=== PATIENT | female | born 1990 | race Caucasian/White ===

== ENCOUNTER 2016-09-07 10:08 | Emergency (ER) | payer MEDICAID ==
[2016-09-07 10:15] VITALS: BP 125/89
[2016-09-07] MEDS ORDERED: IBUPROFEN 600 MG TABLET PO ONE (10:36)
[2016-09-07] MEDS ORDERED: PROMETHAZINE HCL 25 MG TABLET PO ONE (10:36)
--- NOTE | 2016-09-07 10:39 | ER Document Report ---
ED Medical Screen (RME) - General Chief Complaint: Vaginal Bleeding Stated Complaint: VAGINAL BLEEDING Time Seen by Provider: 09/07/16 10:35 Notes: Complaining of vaginal bleeding and pelvic pain. Patient had a at [facility] on 07/18 and had her tubes tied. She had stopped bleeding and was well until 4 days ago when she started having vaginal bleeding. The bleeding has been heavy and associated with clots. Having severe pelvic pain. Nauseated but not vomiting. Patient had a ruptured cyst during her previous . TRAVEL OUTSIDE OF THE [place] IN LAST 30 DAYS: No - Related Data Allergies/Adverse Reactions: Penicillins Allergy (Verified 09/07/16 10:12) Generalized Itching Home Medications: Current Home Medications Bupropion HCl [Wellbutrin Xl 300mg 24hr Tablet] 1 tab PO DAILY 09/07/16 [History ] Past Medical History Renal/ Medical History: Reports: Hx Ovarian Cysts. Denies: Hx Peritoneal Dialysis Psychiatric Medical History: Reports: Hx Anxiety Past Surgical History: Reports: Hx Section - x2, Hx Gynecologic Surgery - 06/2012 - Immunizations Hx Diphtheria, Pertussis, Tetanus Vaccination: Yes Physical Exam - Vital signs Vitals: Temp Pulse Resp BP Pulse Ox 98.1 F 101 H 20 125/89 H 100 09/07/16 10:12 09/07/16 10:12 09/07/16 10:12 09/07/16 10:12 09/07/16 10:12 Course - Vital Signs Vital signs: Temp Pulse Resp BP Pulse Ox 98.1 F 101 H 20 125/89 H 100 09/07/16 10:12 09/07/16 10:12 09/07/16 10:12 09/07/16 10:12 09/07/16 10:12
[2016-09-07 10:58] LABS: ABSOLUTE BASOPHILS # (AUTO) 0.1 10^3/uL (0.0-0.2); ABSOLUTE EOSINOPHILS # (AUTO) 0.1 10^3/uL (0.0-0.6); ABSOLUTE LYMPHOCYTES (AUTO) 1.5 10^3/uL (0.5-4.7); ABSOLUTE MONOCYTES (AUTO) 0.7 10^3/uL (0.1-1.4); ABSOLUTE NEUT (AUTO) 4.5 10^3/uL (1.7-8.2); EOSINOPHILS % (AUTO) 2.1 % (0-6); HEMOGLOBIN 13.2 g/dL (12.0-15.5); HGB HCT DIFFERENCE -1.4; LYMPHOCYTES % (AUTO) 21.5 % (13-45); MEAN CORPUSCULAR HEMOGLOBIN 26.2 pg (27.0-33.4); MEAN CORPUSCULAR HGB CONC 32.1 g/dL (32.0-36.0); MEAN CORPUSCULAR VOLUME 82 fl (80-97); MONOCYTES % (AUTO) 10.1 % (3-13); RED BLOOD COUNT 5.03 10^6/uL (3.72-5.28); RED CELL DISTRIBUTION WIDTH 15.7 % (11.5-14.0); SEGMENTED NEUTROPHILS % (AUTO) 65.3 % (42-78); WHITE BLOOD COUNT 6.8 10^3/uL (4.0-10.5)
== END 2016-09-07 13:25 | disposition left against medical advice (07) ==
LOC: ER 10:08
DX: N93.9 Abnormal uterine and vaginal bleeding, unspecified (principal); R10.2 Pelvic and perineal pain; R11.0 Nausea; Z98.890 Other specified postprocedural states; Z87.42 Personal history of other diseases of the female genital tract; Z88.0 Allergy status to penicillin; Z53.20 Procedure and treatment not carried out because of patient's decision for unspecified reasons
CPT/HCPCS: 99281; 36415; 84702; 85025; J3490 ×2

== ENCOUNTER 2016-10-09 07:08 | Emergency (ER) | payer SELFPAY ==
[2016-10-09 09:18] LABS: ABSOLUTE BASOPHILS # (AUTO) 0.1 10^3/uL (0.0-0.2); ABSOLUTE EOSINOPHILS # (AUTO) 0.1 10^3/uL (0.0-0.6); ABSOLUTE MONOCYTES (AUTO) 0.4 10^3/uL (0.1-1.4); ABSOLUTE NEUT (AUTO) 3.2 10^3/uL (1.7-8.2); BASOPHILS % (AUTO) 1.1 % (0-2); EOSINOPHILS % (AUTO) 2.6 % (0-6); HEMATOCRIT 34.1 % (36.0-47.0); HEMOGLOBIN 11.1 g/dL (12.0-15.5); HGB HCT DIFFERENCE -0.8; LYMPHOCYTES % (AUTO) 20.6 % (13-45); MEAN CORPUSCULAR HEMOGLOBIN 26.1 pg (27.0-33.4); MEAN CORPUSCULAR HGB CONC 32.6 g/dL (32.0-36.0); MEAN CORPUSCULAR VOLUME 80 fl (80-97); MONOCYTES % (AUTO) 8.4 % (3-13); RED BLOOD COUNT 4.26 10^6/uL (3.72-5.28); RED CELL DISTRIBUTION WIDTH 14.7 % (11.5-14.0); SEGMENTED NEUTROPHILS % (AUTO) 67.3 % (42-78); WHITE BLOOD COUNT 4.7 10^3/uL (4.0-10.5)
[2016-10-09 10:53] LABS: ALANINE AMINOTRANSFERASE 21 U/L (9-52); ALBUMIN 3.7 g/dL (3.5-5.0); ALKALINE PHOSPHATASE 60 U/L (38-126); ANION GAP 10 (5-19); ASPARTATE AMINO TRANSFERASE 17 U/L (14-36); BILIRUBIN,DIRECT 0.4 mg/dL (0.0-0.4); BILIRUBIN,TOTAL 0.9 mg/dL (0.2-1.3); BLOOD UREA NITROGEN 9 mg/dL (7-20); CALCIUM 8.8 mg/dL (8.4-10.2); CARBON DIOXIDE 22 mmol/L (22-30); CHLORIDE 105 mmol/L (98-107); CREATININE RESULT 0.56 mg/dL (0.52-1.25); GLUCOSE 90 mg/dL (75-110); POTASSIUM 4.4 mmol/L (3.6-5.0); TOTAL PROTEIN 6.3 g/dL (6.3-8.2)
--- NOTE | 2016-10-09 11:19 | ER Document Report ---
ED General - General Chief Complaint: Vaginal Bleeding Stated Complaint: ABDOMINAL PAIN Time Seen by Provider: 10/09/16 08:30 Mode of Arrival: Ambulatory Information source: Patient Notes: 25-year-old female 4 para 4 who had a tubal ligation presents with complaints of vaginal bleeding intermittently over the past 3 months since her last delivery. Patient denies any fevers or chills denies any severe abdominal pain TRAVEL OUTSIDE OF THE [place] IN LAST 30 DAYS: No - HPI Onset: Other Onset/Duration: Intermittent Quality of pain: Cramping Severity: Mild Pain Level: 1 Associated symptoms: Other Exacerbated by: Denies Relieved by: Denies Similar symptoms previously: Yes Recently seen / treated by doctor: Yes - Related Data Allergies/Adverse Reactions: Penicillins Allergy (Verified 09/07/16 10:12) Generalized Itching Past Medical History - Social History Smoking Status: Never Smoker Cigarette use (# per day): No Chew tobacco use (# tins/day): No Smoking Education Provided: No Family History: Reviewed & Not Pertinent Renal/ Medical History: Reports: Hx Ovarian Cysts. Denies: Hx Peritoneal Dialysis Psychiatric Medical History: Reports: Hx Anxiety Past Surgical History: Reports: Hx Section - x2, Hx Gynecologic Surgery - 06/2012, Hx Tubal Ligation - Immunizations Hx Diphtheria, Pertussis, Tetanus Vaccination: Yes Review of Systems - Review of Systems Notes: REVIEW OF SYSTEMS: CONSTITUTIONAL : Denies fever, chills, or sweats. Denies recent illness. EENT: Denies eye, ear, throat, or mouth pain or symptoms. Denies nasal or sinus congestion or discharge. Denies throat, tongue, or mouth swelling or difficulty swallowing. CARDIOVASCULAR: Denies chest pain. Denies palpitations or racing or irregular heart beat. Denies ankle edema. RESPIRATORY: Denies cough, cold, or chest congestion. Denies shortness of breath, difficulty breathing, or wheezing. GASTROINTESTINAL: Denies abdominal pain or distention. Denies nausea, vomiting , or diarrhea. Denies blood in vomitus, stools, or per rectum. Denies black, tarry stools. Denies constipation. GENITOURINARY: Denies difficulty urinating, painful urination, burning, frequency, blood in urine, or discharge. FEMALE GENITOURINARY: Admits to vaginal bleeding MUSCULOSKELETAL: Denies back or neck pain or stiffness. Denies joint pain or swelling. SKIN: Denies rash, lesions or sores. HEMATOLOGIC : Denies easy bruising or bleeding. LYMPHATIC: Denies swollen, enlarged glands. NEUROLOGICAL: Denies confusion or altered mental status. Denies passing out or loss of consciousness. Denies dizziness or lightheadedness. Denies headache. Denies weakness or paralysis or loss of use of either side. Denies problems with gait or speech. Denies sensory loss, numbness, or tingling. Denies seizures. PSYCHIATRIC: Denies anxiety or stress. Denies depression, suicidal ideation, or homicidal ideation. ALL OTHER SYSTEMS REVIEWED AND NEGATIVE. PHYSICAL EXAMINATION: GENERAL: Well-appearing, well-nourished and in no acute distress. HEAD: Atraumatic, normocephalic. EYES: Pupils equal round and reactive to light, extraocular movements intact, conjunctiva are normal. ENT: Nares patent, oropharynx clear without exudates. Moist mucous membranes. NECK: Normal range of motion, supple without lymphadenopathy LUNGS: Breath sounds clear to auscultation bilaterally and equal. No wheezes rales or rhonchi. HEART: Regular rate and rhythm without murmurs ABDOMEN: Soft, nontender, nondistended abdomen. No guarding, no rebound. No masses appreciated. Female : deferred Musculoskeletal: Normal range of motion, no pitting or edema. No cyanosis. NEUROLOGICAL: Cranial nerves grossly intact. Normal speech, normal gait. Normal sensory, motor exams PSYCH: Normal mood, normal affect. SKIN: Warm, Dry, normal turgor, no rashes or lesions noted. Dictation was performed using [employer] voice recognition software Physical Exam - Vital signs Vitals: Temp Pulse Resp BP Pulse Ox 97.7 F 88 17 119/81 95 10/09/16 07:12 10/09/16 07:12 10/09/16 07:12 10/09/16 07:12 10/09/16 07:12 Course - Re-evaluation Re-evalutation: 10/09/16 14:28 Patient and I had a very long discussion regarding the use of control, given the history of mother's blood clot I believe is high risk to start this in the emergency department, patient will be given [employer] follow-up. Otherwise lab work notes no acute abnormality patient defers on a pelvic she is otherwise stable for discharge After performing a Medical Screening Examination, I estimate there is LOW risk for ACUTE APPENDICITIS, BOWEL OBSTRUCTION, ACUTE CHOLECYSTITIS, PERFORATED DIVERTICULITIS, INCARCERATED HERNIA, PANCREATITIS, PELVIC INFLAMMATORY DISEASE, PERFORATED ULCER, ECTOPIC , or TUBO-OVARIAN ABSCESS, thus I consider the discharge disposition reasonable. Also, there is no evidence or peritonitis , sepsis, or toxicity. I have reevaluated this patient multiple times and no significant life threatening changes are noted. The patient and I have discussed the diagnosis and risks, and we agree with discharging home with close follow-up with the understanding that symptoms and presentations can change. We also discussed returning to the Emergency Department immediately if new or worsening symptoms occur. We have discussed the symptoms which are most concerning (e.g., bloody stool, fever, changing or worsening pain, vomiting) that necessitate immediate return. - Vital Signs Vital signs: Temp Pulse Resp BP Pulse Ox 97.8 F 91 17 123/89 H 98 10/09/16 11:28 10/09/16 11:28 10/09/16 07:12 10/09/16 11:28 10/09/16 11:28 - Laboratory Result Diagrams: 10/09/16 09:07 10/09/16 09:07 Laboratory results interpreted by me: 10/09/16 09:07 Hgb 11.1 L Hct 34.1 L MCH 26.1 L RDW 14.7 H Discharge - Discharge Clinical Impression: Dysfunctional vaginal bleeding, Pelvic cramping Condition: Stable Disposition: HOME, SELF-CARE Instructions: Dysfunctional Uterine Bleeding ([facility]) Referrals: TIFFANY FIERRO DO [Primary Care Provider] - Follow up as needed [facility] [Provider Group] - Follow up tomorrow
[2016-10-09 11:33] VITALS: BP 123/89
== END 2016-10-09 11:28 | disposition home or self-care (01) ==
LOC: ER 07:08
DX: N93.8 Other specified abnormal uterine and vaginal bleeding (principal); R10.2 Pelvic and perineal pain; R10.9 Unspecified abdominal pain
CPT/HCPCS: 36415; 80053; 84703; 85025; 99284

== ENCOUNTER 2016-11-03 07:30 | Emergency (ER) | payer SELFPAY ==
[2016-11-03] MEDS ORDERED: PROCHLORPERAZINE EDISYLATE INJ 10 MG/2 ML VIAL IV ONE (08:15)
[2016-11-03] MEDS ORDERED: KETOROLAC TROMETHAMINE INJ/PF 30 MG/1 ML SDV IV ONE (08:15)
[2016-11-03] MEDS ORDERED: NORMAL SALINE 1000 ML 1,000 ML IV ONE (08:15)
[2016-11-03 09:09] LABS: ABSOLUTE BASOPHILS # (AUTO) 0.1 10^3/uL (0.0-0.2); ABSOLUTE EOSINOPHILS # (AUTO) 0.2 10^3/uL (0.0-0.6); ABSOLUTE LYMPHOCYTES (AUTO) 1.3 10^3/uL (0.5-4.7); ABSOLUTE MONOCYTES (AUTO) 0.6 10^3/uL (0.1-1.4); ABSOLUTE NEUT (AUTO) 3.2 10^3/uL (1.7-8.2); BASOPHILS % (AUTO) 1.2 % (0-2); EOSINOPHILS % (AUTO) 4.5 % (0-6); HEMATOCRIT 35.7 % (36.0-47.0); HEMOGLOBIN 11.4 g/dL (12.0-15.5); HGB HCT DIFFERENCE -1.5; LYMPHOCYTES % (AUTO) 24.1 % (13-45); MEAN CORPUSCULAR HEMOGLOBIN 25.7 pg (27.0-33.4); MEAN CORPUSCULAR VOLUME 80 fl (80-97); MONOCYTES % (AUTO) 11.6 % (3-13); RED BLOOD COUNT 4.44 10^6/uL (3.72-5.28); RED CELL DISTRIBUTION WIDTH 13.7 % (11.5-14.0); SEGMENTED NEUTROPHILS % (AUTO) 58.6 % (42-78); WHITE BLOOD COUNT 5.5 10^3/uL (4.0-10.5)
[2016-11-03 09:25] LABS: ALANINE AMINOTRANSFERASE 23 U/L (9-52); ALBUMIN 3.9 g/dL (3.5-5.0); ALKALINE PHOSPHATASE 55 U/L (38-126); ANION GAP 10 (5-19); ASPARTATE AMINO TRANSFERASE 18 U/L (14-36); BILIRUBIN,DIRECT 0.2 mg/dL (0.0-0.4); BILIRUBIN,TOTAL 0.5 mg/dL (0.2-1.3); BLOOD UREA NITROGEN 13 mg/dL (7-20); CARBON DIOXIDE 28 mmol/L (22-30); CHLORIDE 100 mmol/L (98-107); CREATININE RESULT 0.62 mg/dL (0.52-1.25); GLUCOSE 66 mg/dL (75-110); POTASSIUM 4.2 mmol/L (3.6-5.0); TOTAL PROTEIN 6.6 g/dL (6.3-8.2)
[2016-11-03 10:11] LABS: APPEARANCE,URINE SLIGHTLY-CLOUDY; BILIRUBIN,URINE NEGATIVE (NEGATIVE); GLUCOSE, URINE NEGATIVE (NEGATIVE); KETONES,URINE NEGATIVE (NEGATIVE); LEUKOCYTE ESTERASE,URINE NEGATIVE (NEGATIVE); NITRITE,URINE NEGATIVE (NEGATIVE); PROTEIN,URINE NEGATIVE (NEGATIVE); URINE SPECIFIC GRAVITY 1.011; UROBILINOGEN,URINE NEGATIVE mg/dL (<2.0)
--- NOTE | 2016-11-03 10:30 | ER Document Report ---
ED Headache - General Chief Complaint: Headache Stated Complaint: HEADACHE Time Seen by Provider: 11/03/16 08:08 Mode of Arrival: Ambulatory Information source: Patient Notes: Patient is a 25-year-old female with a history of migraines who presents to the ER today for headache that began 1 week ago, behind both of her eyes radiating to the back of her head. She describes blurred vision and light and sound sensitivity which is all normal for her migraines. She is to take Fioricet, but however now just takes Excedrin which is not helping with the headaches. She admits to nausea but no vomiting with this migraine. She also complains of swollen feet 3 days. She states this has never happened to her before, denies any injury, states that there both swollen equally. She denies any history of congestive heart failure, states that she does not think she is . She did just have a baby 4 months ago. She also complains of her hair falling out 1 week. She states that her family has a history of thyroid issues but she has never been diagnosed with anything. Also complains of a sunburn to her abdomen that she has been applying after sun aloe vera gel on but has not been helping. She complains of painful blisters. TRAVEL OUTSIDE OF THE [place] IN LAST 30 DAYS: Yes - Related Data Allergies/Adverse Reactions: Penicillins Allergy (Verified 09/07/16 10:12) Generalized Itching Past Medical History - General Information source: Patient - Social History Smoking Status: Never Smoker Chew tobacco use (# tins/day): No Frequency of alcohol use: None Drug Abuse: None Family History: Reviewed & Not Pertinent Renal/ Medical History: Reports: Hx Ovarian Cysts. Denies: Hx Peritoneal Dialysis Psychiatric Medical History: Reports: Hx Anxiety Past Surgical History: Reports: Hx Section - x2, Hx Gynecologic Surgery - 06/2012, Hx Tubal Ligation - Immunizations Hx Diphtheria, Pertussis, Tetanus Vaccination: Yes Review of Systems - Review of Systems Constitutional: See HPI EENT: No symptoms reported Cardiovascular: No symptoms reported Respiratory: No symptoms reported Gastrointestinal: No symptoms reported Genitourinary: No symptoms reported Female Genitourinary: No symptoms reported Musculoskeletal: No symptoms reported Skin: See HPI Hematologic/Lymphatic: No symptoms reported Neurological/Psychological: See HPI Physical Exam - Vital signs Vitals: Temp Pulse Resp BP Pulse Ox 97.6 F 68 16 123/73 100 11/03/16 07:31 11/03/16 07:31 11/03/16 07:31 11/03/16 07:31 11/03/16 07:31 - Notes Notes: Morning PHYSICAL EXAMINATION: GENERAL: Well-appearing and in no acute distress. HEAD: Atraumatic, normocephalic. EYES: Pupils equal round and reactive to light, extraocular movements intact, sclera anicteric, conjunctiva are normal. NECK: Normal range of motion, supple without lymphadenopathy LUNGS: CTAB and equal. No wheezes rales or rhonchi. HEART: Regular rate and rhythm without murmurs ABDOMEN: Soft, no tenderness. No guarding, no rebound BACK: no vertebral tenderness, normal ROM GI/: no CVA tenderness EXTREMITIES: Normal range of motion, no pitting edema. No cyanosis. NEUROLOGICAL: Cranial nerves grossly intact. Normal sensory/motor exams. PSYCH: Normal mood, normal affect. SKIN: Warm, Dry, normal turgor, mild edema to dorsal feet bilaterally, nonpitting , Erythema, second-degree sunburn with blisters to abdomen - HEENT Visual acuity- Right eye: 20/40 Visual acuity- Left eye: 50/50 Visual acuity- Both eyes: 20/40 Corrective lenses worn: No Course - Re-evaluation Re-evalutation: 11/03/16 10:28 Patient did pull out some of her own hair very easily in the room, her thyroid is normal today, normal white blood cell count, BNP is mildly elevated, I do not suspect congestive heart failure or kidney disease causing the swelling of the feet. was negative today. I do advise patient follow-up with her primary care provider about her hair falling out and the swelling in her feet. Her headache is better after IV fluids and medication.. - Vital Signs Vital signs: Temp Pulse Resp BP Pulse Ox 97.6 F 68 16 123/73 100 11/03/16 07:31 11/03/16 07:31 11/03/16 07:31 11/03/16 07:31 11/03/16 07:31 - Laboratory Result Diagrams: 11/03/16 08:40 11/03/16 08:40 Laboratory results interpreted by me: 11/03/16 11/03/16 11/03/16 08:40 08:40 08:40 Hgb 11.4 L Hct 35.7 L MCH 25.7 L Glucose 66 L NT-Pro-B Natriuret Pep 135 H Discharge - Discharge Clinical Impression: Hair loss, Pedal edema, Sunburn Migraine Qualifiers: Migraine type: unspecified Status migrainosus presence: without status migrainosus Intractability: not intractable Qualified Code(s): G43.909 - Migraine, unspecified, not intractable, without status migrainosus Condition: Stable Disposition: HOME, SELF-CARE Instructions: Migraine Headache ([facility]), Edema, Peripheral ([facility]) Additional Instructions: Return immediately for any new or worsening symptoms. Follow up with primary care provider, call tomorrow to make followup appointment. Prescriptions: Ibuprofen [Motrin 800 mg Tablet] 800 mg PO Q8H PRN #30 tab PRN Reason: Referrals: TIFFANY FIERRO DO [Primary Care Provider] - Follow up as needed
[2016-11-03] MEDS ORDERED: SILVER SULFADIAZINE 1% CREAM 400 GM TP ONE (11:17)
[2016-11-03 11:29] VITALS: BP 110/60
== END 2016-11-03 11:29 | disposition home or self-care (01) ==
LOC: ER 07:30
DX: G43.909 Migraine, unspecified, not intractable, without status migrainosus (principal); L65.9 Nonscarring hair loss, unspecified; L55.9 Sunburn, unspecified; R60.9 Edema, unspecified; Z88.0 Allergy status to penicillin
CPT/HCPCS: 99283; 96361; 96374; 96375; 36415; 84443; 84703; 85025; 80053; 81001; 83880; J1885; J0780; J3490; J7030

== ENCOUNTER 2017-02-19 18:03 | Emergency (ER) | payer MEDICAID ==
[2017-02-19 18:22] VITALS: BP 116/78
--- NOTE | 2017-02-19 19:44 | ER Document Report ---
ED Medical Screen (RME) - General Chief Complaint: Vaginal Bleeding Stated Complaint: VAGINGAL BLEEDING, HANDS TINGLING Time Seen by Provider: 02/19/17 19:43 Notes: Patient states that she has heavy vaginal bleeding for the last 6 months ever since she had her tubes tied. She states she is getting severe cramping with this as well. TRAVEL OUTSIDE OF THE [place] IN LAST 30 DAYS: No - Related Data Allergies/Adverse Reactions: Penicillins Allergy (Verified 02/19/17 18:18) Generalized Itching Past Medical History Renal/ Medical History: Reports: Hx Ovarian Cysts. Denies: Hx Peritoneal Dialysis Psychiatric Medical History: Reports: Hx Anxiety Past Surgical History: Reports: Hx Section - x2, Hx Gynecologic Surgery - 06/2012, Hx Tubal Ligation - Immunizations Hx Diphtheria, Pertussis, Tetanus Vaccination: Yes Physical Exam - Vital signs Vitals: Temp Pulse Resp BP Pulse Ox 98.4 F 95 16 116/78 100 02/19/17 18:17 02/19/17 18:17 02/19/17 18:17 02/19/17 18:17 02/19/17 18:17 Course - Vital Signs Vital signs: Temp Pulse Resp BP Pulse Ox 98.4 F 95 16 116/78 100 02/19/17 18:17 02/19/17 18:17 02/19/17 18:17 02/19/17 18:17 02/19/17 18:17
[2017-02-19 20:15] LABS: ABSOLUTE BASOPHILS # (AUTO) 0.1 10^3/uL (0.0-0.2); ABSOLUTE EOSINOPHILS # (AUTO) 0.1 10^3/uL (0.0-0.6); ABSOLUTE LYMPHOCYTES (AUTO) 1.3 10^3/uL (0.5-4.7); ABSOLUTE MONOCYTES (AUTO) 0.8 10^3/uL (0.1-1.4); BASOPHILS % (AUTO) 0.7 % (0-2); EOSINOPHILS % (AUTO) 1.2 % (0-6); HEMATOCRIT 36.4 % (36.0-47.0); HEMOGLOBIN 12.3 g/dL (12.0-15.5); HGB HCT DIFFERENCE 0.5; LYMPHOCYTES % (AUTO) 18.4 % (13-45); MEAN CORPUSCULAR HEMOGLOBIN 26.2 pg (27.0-33.4); MEAN CORPUSCULAR HGB CONC 33.7 g/dL (32.0-36.0); MEAN CORPUSCULAR VOLUME 78 fl (80-97); MONOCYTES % (AUTO) 10.4 % (3-13); RED BLOOD COUNT 4.68 10^6/uL (3.72-5.28); RED CELL DISTRIBUTION WIDTH 15.4 % (11.5-14.0); SEGMENTED NEUTROPHILS % (AUTO) 69.3 % (42-78); WHITE BLOOD COUNT 7.2 10^3/uL (4.0-10.5)
[2017-02-19 20:23] LABS: APPEARANCE,URINE SLIGHTLY-CLOUDY; BILIRUBIN,URINE NEGATIVE (NEGATIVE); GLUCOSE, URINE 150 mg/dL (NEGATIVE); KETONES,URINE NEGATIVE (NEGATIVE); LEUKOCYTE ESTERASE,URINE NEGATIVE (NEGATIVE); NITRITE,URINE NEGATIVE (NEGATIVE); PROTEIN,URINE 30 mg/dL (NEGATIVE); URINE SPECIFIC GRAVITY 1.028
[2017-02-19] MEDS ORDERED: OXYCODONE-ACETAMINOPHEN 5-325 MG TABLET PO ONE (20:36)
[2017-02-19] MEDS ORDERED: IBUPROFEN 800 MG TABLET PO ONE (20:36)
--- NOTE | 2017-02-19 20:38 | ER Document Report ---
ED GI/ - General Chief Complaint: Vaginal Bleeding Stated Complaint: VAGINGAL BLEEDING, HANDS TINGLING Time Seen by Provider: 02/19/17 19:43 Mode of Arrival: Ambulatory Information source: Patient Notes: Patient presents complaining of vaginal bleeding for the past 2 days. Patient states that the bleeding has been heavy and she has passed occasional clots. Patient does report chronic right lower pelvic pain since June after having a tubal ligation. Patient denies any fever. Patient does complain of some burning with urination. Patient reports previous history of PID in the past. Patient states that she has not followed up with a supervisor chassis assembly as she does not currently have insurance. TRAVEL OUTSIDE OF THE [place] IN LAST 30 DAYS: No - HPI Patient complains to provider of: Pelvic pain. No: Vomiting Onset: Other - Pelvic pain since June, vaginal bleeding for 2 days Timing/Duration: Persistent Quality of pain: Achy Pain Level: 4 Context: denies: Location: Pelvis Vaginal bleeding (Compared to normal period): Heavier, Passing clots Sexual history: Active Associated symptoms: Dysuria. denies: Diarrhea, Fever, Nausea, Urinary hesitancy Exacerbated by: Denies Relieved by: Denies Similar symptoms previously: Yes Recently seen / treated by doctor: No - Related Data Allergies/Adverse Reactions: Penicillins Allergy (Verified 02/19/17 18:18) Generalized Itching Past Medical History - General Information source: Patient Last Menstrual Period: 2 days - Social History Smoking Status: Never Smoker Frequency of alcohol use: None Drug Abuse: None Occupation: Retail Lives with: Family Family History: Reviewed & Not Pertinent Patient has suicidal ideation: No Patient has homicidal ideation: No Renal/ Medical History: Reports: Hx Ovarian Cysts. Denies: Hx Peritoneal Dialysis Psychiatric Medical History: Reports: Hx Anxiety Past Surgical History: Reports: Hx Section - x2, Hx Gynecologic Surgery - 06/2012, Hx Tubal Ligation - Immunizations Hx Diphtheria, Pertussis, Tetanus Vaccination: Yes Review of Systems - Review of Systems Constitutional: No symptoms reported. denies: Fever EENT: No symptoms reported Cardiovascular: No symptoms reported. denies: Chest pain, Dizziness, Lightheaded Respiratory: No symptoms reported. denies: Cough, Short of breath Gastrointestinal: No symptoms reported. denies: Vomiting Genitourinary: Burning. denies: Flank pain Female Genitourinary: Heavy/abnormal periods, Vaginal bleeding Musculoskeletal: No symptoms reported. denies: Back pain Skin: No symptoms reported Hematologic/Lymphatic: No symptoms reported Neurological/Psychological: No symptoms reported Physical Exam - Vital signs Vitals: Temp Pulse Resp BP Pulse Ox 98.4 F 95 16 116/78 100 02/19/17 18:17 02/19/17 18:17 02/19/17 18:17 02/19/17 18:17 02/19/17 18:17 - General General appearance: Appears well, Alert In distress: None - HEENT Head: Normocephalic, Atraumatic Eyes: Normal Conjunctiva: Normal Nasal: Normal Mouth/Lips: Normal Pharynx: Normal Neck: Normal, Supple. No: Lymphadenopathy - Respiratory Respiratory status: No respiratory distress Chest status: Nontender Breath sounds: Normal. No: Rales, Rhonchi, Stridor, Wheezing Chest palpation: Normal - Cardiovascular Rhythm: Regular Heart sounds: S1 appreciated, S2 appreciated Murmur: No - Abdominal Inspection: Normal Distension: No distension Bowel sounds: Normal Tenderness: Tender - lower pelvic tenderness Organomegaly: No organomegaly - Genitourinary External exam: Normal Speculum exam: Cervix closed Vaginal bleeding: Mild Bimanuel exam: Cervical motion tender - Back Back: Tender - lumbar paraspinal tenderness. No: CVA tenderness, Vertebra tenderness - Extremities General upper extremity: Normal inspection, Normal ROM General lower extremity: Normal inspection, Normal ROM - Neurological Neuro grossly intact: Yes Cognition: Normal [place] Coma Scale Eye Opening: Spontaneous [place] Coma Scale Verbal: Oriented [place] Coma Scale Motor: Obeys Commands Jeanne Coma Scale Total: 15 - Psychological Associated symptoms: Normal affect, Normal mood - Skin Skin Temperature: Warm Skin Moisture: Dry Skin Color: Normal Course - Vital Signs Vital signs: Temp Pulse Resp BP Pulse Ox 98.4 F 95 16 116/78 100 02/19/17 18:17 02/19/17 18:17 02/19/17 18:17 02/19/17 18:17 02/19/17 18:17 - Laboratory Result Diagrams: 02/19/17 19:58 02/19/17 19:58 Laboratory results interpreted by me: 02/19/17 02/19/17 02/19/17 19:58 19:58 19:58 MCV 78 L MCH 26.2 L RDW 15.4 H AST 12 L Urine Protein 30 H Urine Glucose (UA) 150 H Urine Blood LARGE H Urine Urobilinogen 2.0 H 02/19/17 21:20 MCV MCH RDW AST Urine Protein Urine Glucose (UA) 50 H Urine Blood Urine Urobilinogen 4.0 H 02/20/17 06:53 Labs- Entire Visit 02/19/17 02/19/17 02/19/17 19:58 19:58 19:58 WBC 7.2 RBC 4.68 Hgb 12.3 Hct 36.4 MCV 78 L MCH 26.2 L MCHC 33.7 RDW 15.4 H Plt Count 351 Seg Neutrophils % 69.3 Lymphocytes % 18.4 Monocytes % 10.4 Eosinophils % 1.2 Basophils % 0.7 Absolute Neutrophils 5.0 Absolute Lymphocytes 1.3 Absolute Monocytes 0.8 Absolute Eosinophils 0.1 Absolute Basophils 0.1 Sodium 142.9 Potassium 4.1 Chloride 105 Carbon Dioxide 25 Anion Gap 13 BUN 9 Creatinine 0.52 Est GFR ( Amer) > 60 Est GFR (Non-Af Amer) > 60 Glucose 85 Calcium 9.5 Total Bilirubin 0.5 Direct Bilirubin 0.3 Indirect Bilirubin Not Reportable Neonat Total Bilirubin Not Reportable AST 12 L ALT 23 Alkaline Phosphatase 42 Total Protein 6.9 Albumin 4.4 Urine Color YELLOW Urine Appearance SLIGHTLY-CLOUDY Urine pH 5.0 Ur Specific [place] 1.028 Urine Protein 30 H Urine Glucose (UA) 150 H Urine Ketones NEGATIVE Urine Blood LARGE H Urine Nitrite NEGATIVE Urine Bilirubin NEGATIVE Urine Urobilinogen 2.0 H Ur Leukocyte Esterase NEGATIVE Urine WBC (Auto) 6 Urine RBC (Auto) 49 Urine Bacteria (Auto) TRACE Squamous Epi Cells Auto 11 Amorphous Sediment Auto Urine Mucus (Auto) FEW Urine Ascorbic Acid NEGATIVE Urine HCG, Qual NEGATIVE Trichomonas (Wet Prep) Vaginal WBC Vaginal RBC Vaginal Yeast Chlamydia DNA (PCR) N.gonorrhoeae DNA (PCR) 02/19/17 02/19/17 02/19/17 21:20 21:30 21:30 WBC RBC Hgb Hct MCV MCH MCHC RDW Plt Count Seg Neutrophils % Lymphocytes % Monocytes % Eosinophils % Basophils % Absolute Neutrophils Absolute Lymphocytes Absolute Monocytes Absolute Eosinophils Absolute Basophils Sodium Potassium Chloride Carbon Dioxide Anion Gap BUN Creatinine Est GFR ( Amer) Est GFR (Non-Af Amer) Glucose Calcium Total Bilirubin Direct Bilirubin Indirect Bilirubin Neonat Total Bilirubin AST ALT Alkaline Phosphatase Total Protein Albumin Urine Color YELLOW Urine Appearance CLOUDY Urine pH 6.0 Ur Specific [place] 1.023 Urine Protein NEGATIVE Urine Glucose (UA) 50 H Urine Ketones NEGATIVE Urine Blood NEGATIVE Urine Nitrite NEGATIVE Urine Bilirubin NEGATIVE Urine Urobilinogen 4.0 H Ur Leukocyte Esterase NEGATIVE Urine WBC (Auto) 0 Urine RBC (Auto) 1 Urine Bacteria (Auto) Squamous Epi Cells Auto 1 Amorphous Sediment Auto TRACE Urine Mucus (Auto) RARE Urine Ascorbic Acid NEGATIVE Urine HCG, Qual Trichomonas (Wet Prep) NO TRICHOMONAS SEEN Vaginal WBC RARE WBCS SEEN Vaginal RBC 3+ RBCS SEEN Vaginal Yeast NO YEAST SEEN Chlamydia DNA (PCR) NOT DETECTED N.gonorrhoeae DNA (PCR) NOT DETECTED Discharge - Discharge Clinical Impression: Dysmenorrhea, PID (acute pelvic inflammatory disease) Condition: Stable Disposition: HOME, SELF-CARE Instructions: Anti-Inflammatory Medication ([facility]), Doxycycline ([facility]), Dysmenorrhea ([facility]), Pelvic Inflammatory Disease ([facility]), Rocephin ([facility]) Additional Instructions: Return immediately for any new or worsening symptoms Followup with your primary care provider, call tomorrow to make a followup appointment Follow-up with a supervisor chassis assembly for further evaluation of your chronic pelvic pain Prescriptions: Doxycycline Hyclate 100 mg PO BID #28 capsule Naproxen [Naprosyn 250 Nmg Tablet] 1 tab PO BID #14 tablet Forms: Return to Work Referrals: TIFFANY FIERRO DO [Primary Care Provider] - Follow up as needed [facility] [Provider Group] - Follow up as needed [facility] [Provider Group] - Follow up as needed [facility] [NO LOCAL MD] - Follow up tomorrow
[2017-02-19 20:42] LABS: ALANINE AMINOTRANSFERASE 23 U/L (9-52); ALBUMIN 4.4 g/dL (3.5-5.0); ALKALINE PHOSPHATASE 42 U/L (38-126); ANION GAP 13 (5-19); ASPARTATE AMINO TRANSFERASE 12 U/L (14-36); BILIRUBIN,DIRECT 0.3 mg/dL (0.0-0.4); BILIRUBIN,TOTAL 0.5 mg/dL (0.2-1.3); BLOOD UREA NITROGEN 9 mg/dL (7-20); CALCIUM 9.5 mg/dL (8.4-10.2); CARBON DIOXIDE 25 mmol/L (22-30); CHLORIDE 105 mmol/L (98-107); CREATININE RESULT 0.52 mg/dL (0.52-1.25); GLUCOSE 85 mg/dL (75-110); POTASSIUM 4.1 mmol/L (3.6-5.0); SODIUM 142.9 mmol/L (137-145); TOTAL PROTEIN 6.9 g/dL (6.3-8.2)
[2017-02-19 21:45] LABS: AMORPHOUS SEDIMENT,URINE TRACE /HPF; APPEARANCE,URINE CLOUDY; BILIRUBIN,URINE NEGATIVE (NEGATIVE); GLUCOSE, URINE 50 mg/dL (NEGATIVE); KETONES,URINE NEGATIVE (NEGATIVE); LEUKOCYTE ESTERASE,URINE NEGATIVE (NEGATIVE); NITRITE,URINE NEGATIVE (NEGATIVE); PROTEIN,URINE NEGATIVE (NEGATIVE); URINE SPECIFIC GRAVITY 1.023
[2017-02-19] MEDS ORDERED: DOXYCYCLINE HYCLATE 100 MG TABLET PO ONE (22:35)
[2017-02-19] MEDS ORDERED: LIDOCAINE 1% INJ-PF (10 MG/ML) 30 ML SDV INJ ONE (22:35)
[2017-02-19] MEDS ORDERED: CEFTRIAXONE INJ 250 MG VIAL IM ONE (22:35)
[2017-02-19 23:34] LABS: CHLAM PCR NOT DETECTED (NOT DETECT)
== END 2017-02-19 23:45 | disposition home or self-care (01) ==
LOC: ER 18:03
DX: N94.6 Dysmenorrhea, unspecified (principal); N73.9 Female pelvic inflammatory disease, unspecified; R10.2 Pelvic and perineal pain; G89.29 Other chronic pain; R30.0 Dysuria; Z88.0 Allergy status to penicillin; Z98.51 Tubal ligation status; Z87.42 Personal history of other diseases of the female genital tract
CPT/HCPCS: 99284; 96372; 51701; 36415; 87086; 87210; 85025; 81025; 80053; 81001; 87491; 87591; J3490 ×3; J0696

== ENCOUNTER 2017-03-21 14:35 | Emergency (ER) | payer SELFPAY ==
[2017-03-21] MEDS ORDERED: BUTALB/ACETAMINOPHEN/CAFFEINE 1 TAB EACH PO ONE (15:29)
--- NOTE | 2017-03-21 15:57 | RADIOLOGY REPORT (SQ) ---
EXAM DESCRIPTION: CT HEAD WITHOUT COMPLETED DATE/TIME: 03/21/2017 3:48 pm REASON FOR STUDY: [email or web address] COMPARISON: None. TECHNIQUE: Axial images acquired through the brain without intravenous contrast. Images reviewed wi th bone, brain and subdural windows. Images stored on PACS. All CT scanners at this facility use dose modulation, iterative reconstruction, and/or weight based d osing when appropriate to reduce radiation dose to as low as reasonably achievable (ALARA). [facility]: Dose Right [facility]: CareDose [facility]: Dose Right [facility]: Teradose 4D [facility]: M Lite Solution RADIATION DOSE: mGy. LIMITATIONS: None. FINDINGS: VENTRICLES: Normal size and contour. CEREBRUM: No masses. No hemorrhage. No midline shift. No evidence for acute infarction. Normal gra y/white matter differentiation. No areas of low density in the white matter. CEREBELLUM: No masses. No hemorrhage. No alteration of density. No evidence for acute infarction. EXTRAAXIAL SPACES: No fluid collections. No masses. ORBITS AND GLOBE: No intra- or extraconal masses. Normal contour of globe without masses. CALVARIUM: No fracture. PARANASAL SINUSES: No fluid or mucosal thickening. SOFT TISSUES: No mass or hematoma. OTHER: No other significant finding. IMPRESSION: NORMAL BRAIN CT WITHOUT CONTRAST. EVIDENCE OF ACUTE STROKE: NO. COMMENT: Quality ID # [id number]: Final reports with documentation of one or more dose reduction techniques (e.g., Automated exposure control, adjustment of the mA and/or kV according to patient size, use of iterative reconstruction technique) TECHNICAL DOCUMENTATION: JOB ID: [id number] [employer]- All Rights Reserved
--- NOTE | 2017-03-21 16:25 | ER Document Report ---
ED General - General Chief Complaint: Headache Stated Complaint: HEADACHE Time Seen by Provider: 03/21/17 15:29 Mode of Arrival: Ambulatory Information source: Patient Notes: Patient reports that she has history of migraines and they are usually relieved with Excedrin. 2 days ago she developed a migraine on the left side that will not go away with Excedrin. It is severe and constant. It is worse with light and sound. It is better with dark room and rest. It radiates to the left side of her face. No trauma or fevers. Some nausea no vomiting or diarrhea. TRAVEL OUTSIDE OF THE [place] IN LAST 30 DAYS: No - Related Data Allergies/Adverse Reactions: Penicillins Allergy (Verified 03/21/17 14:59) Generalized Itching Past Medical History - General Information source: Patient - Social History Smoking Status: Never Smoker Chew tobacco use (# tins/day): No Frequency of alcohol use: None Drug Abuse: None Family History: Reviewed & Not Pertinent Patient has suicidal ideation: No Patient has homicidal ideation: No Renal/ Medical History: Reports: Hx Ovarian Cysts. Denies: Hx Peritoneal Dialysis Psychiatric Medical History: Reports: Hx Anxiety Past Surgical History: Reports: Hx Section - x2, Hx Gynecologic Surgery - 06/2012, Hx Tubal Ligation - Immunizations Hx Diphtheria, Pertussis, Tetanus Vaccination: Yes Review of Systems - Review of Systems Constitutional: denies: Chills, Fever EENT: denies: Eye pain, Eye discharge Cardiovascular: denies: Chest pain, Palpitations Respiratory: denies: Cough, Short of breath -: Yes All other systems reviewed and negative Physical Exam - Vital signs Interpretation: Hypertensive - General General appearance: Appears well, Alert - HEENT Head: Normocephalic, Atraumatic Eyes: Normal Pupils: PERRL - Respiratory Respiratory status: No respiratory distress Chest status: Nontender Breath sounds: Normal Chest palpation: Normal - Cardiovascular Rhythm: Regular Heart sounds: Normal auscultation Murmur: No - Abdominal Inspection: Normal Distension: No distension Bowel sounds: Normal Tenderness: Nontender Organomegaly: No organomegaly - Back Back: Normal, Nontender - Extremities General upper extremity: Normal inspection, Nontender, Normal color, Normal ROM , Normal temperature General lower extremity: Normal inspection, Nontender, Normal color, Normal ROM , Normal temperature, Normal weight bearing. No: Jeffrey's sign - Neurological Neuro grossly intact: Yes Cognition: Normal Orientation: AAOx4 Jeanne Coma Scale Eye Opening: Spontaneous [place] Coma Scale Verbal: Oriented Jeanne Coma Scale Motor: Obeys Commands Jeanne Coma Scale Total: 15 Speech: Normal Cranial nerves: Normal Cerebellar coordination: Normal Motor strength normal: LUE, RUE, LLE, RLE Sensory: Normal - Psychological Associated symptoms: Normal affect, Normal mood - Skin Skin Temperature: Warm Skin Moisture: Dry Skin Color: Normal Course - Diagnostic Test Radiology reviewed: Image reviewed, Reports reviewed - Head CT shows no evidence of acute pathology Discharge - Discharge Clinical Impression: Migraine Qualifiers: Migraine type: other Status migrainosus presence: with status migrainosus Intractability: intractable Qualified Code(s): G43.811 - Other migraine, intractable, with status migrainosus Condition: Stable Disposition: HOME, SELF-CARE Instructions: Headache ([facility]) Additional Instructions: Your blood pressure was mildly elevated. Please have this rechecked by your doctor within the next week. Prescriptions: Butalb/Acetaminophen/Caffeine [Fioricet (50-325-40 mg) Tablet] 1 - 2 tab PO Q4H #20 tab Forms: Elevated Blood Pressure, Return to Work Referrals: MEL LOPEZ MD [COMMUNITY BASED STAFF] - Follow up as needed
[2017-03-21 16:40] VITALS: BP 98/60
== END 2017-03-21 16:38 | disposition home or self-care (01) ==
LOC: ER 14:35
DX: G43.911 Migraine, unspecified, intractable, with status migrainosus (principal); Z88.0 Allergy status to penicillin
CPT/HCPCS: 99284; 70450; J3490

== ENCOUNTER 2017-03-27 16:12 | Emergency (ER) | payer SELFPAY ==
[2017-03-27 16:32] VITALS: BP 106/56
--- NOTE | 2017-03-27 16:58 | ER Document Report ---
ED General - General Chief Complaint: Abdominal Pain Stated Complaint: ABDOMINAL PAIN,NAUSEA,HEADACHE Time Seen by Provider: 03/27/17 16:53 Mode of Arrival: Ambulatory Information source: Patient Notes: Patient complains of pain that started yesterday behind her umbilicus and radiates to both lower quadrants. She denies any problems with urination or vaginal bleeding. No positive bowel movements. She has had no vomiting. She states the pain is been intermittent. Nothing makes it better or worse. It is a sharp pain. It is moderate in intensity. TRAVEL OUTSIDE OF THE [place] IN LAST 30 DAYS: No - Related Data Allergies/Adverse Reactions: Penicillins Allergy (Verified 03/27/17 16:16) Generalized Itching Past Medical History - General Information source: Patient - Social History Smoking Status: Never Smoker Frequency of alcohol use: Occasional Drug Abuse: None Lives with: Alone Family History: Reviewed & Not Pertinent Patient has suicidal ideation: No Patient has homicidal ideation: No Renal/ Medical History: Reports: Hx Ovarian Cysts. Denies: Hx Peritoneal Dialysis Psychiatric Medical History: Reports: Hx Anxiety Past Surgical History: Reports: Hx Section - x2, Hx Gynecologic Surgery - 06/2012, Hx Tubal Ligation - Immunizations Hx Diphtheria, Pertussis, Tetanus Vaccination: Yes Review of Systems - Review of Systems Constitutional: denies: Chills, Fever Cardiovascular: denies: Chest pain, Palpitations Respiratory: denies: Cough, Short of breath Genitourinary: denies: Dysuria, Discharge -: Yes All other systems reviewed and negative Physical Exam - Vital signs Vitals: Temp Pulse Resp BP Pulse Ox 98.3 F 79 16 106/56 L 99 03/27/17 16:31 03/27/17 16:31 03/27/17 16:31 03/27/17 16:31 03/27/17 16:31 Interpretation: Normal - General General appearance: Appears well, Alert - HEENT Head: Normocephalic, Atraumatic Eyes: Normal Pupils: PERRL - Respiratory Respiratory status: No respiratory distress Chest status: Nontender Breath sounds: Normal Chest palpation: Normal - Cardiovascular Rhythm: Regular Heart sounds: Normal auscultation Murmur: No - Abdominal Inspection: Normal Distension: No distension Bowel sounds: Normal Tenderness: Tender, Other - Patient had a minimally tender but fully reducible umbilical hernia. Otherwise abdominal exam was unremarkable. Organomegaly: No organomegaly - Back Back: Normal, Nontender - Extremities General upper extremity: Normal inspection, Nontender, Normal color, Normal ROM , Normal temperature General lower extremity: Normal inspection, Nontender, Normal color, Normal ROM , Normal temperature, Normal weight bearing. No: Jeffrey's sign - Neurological Neuro grossly intact: Yes Cognition: Normal Orientation: AAOx4 Jeanne Coma Scale Eye Opening: Spontaneous Jeanne Coma Scale Verbal: Oriented Jeanne Coma Scale Motor: Obeys Commands Jeanne Coma Scale Total: 15 Speech: Normal Motor strength normal: LUE, RUE, LLE, RLE Sensory: Normal - Psychological Associated symptoms: Normal affect, Normal mood - Skin Skin Temperature: Warm Skin Moisture: Dry Skin Color: Normal Course - Vital Signs Vital signs: Temp Pulse Resp BP Pulse Ox 98.3 F 79 16 106/56 L 99 03/27/17 16:31 03/27/17 16:31 03/27/17 16:31 03/27/17 16:31 03/27/17 16:31 Discharge - Discharge Clinical Impression: Umbilical hernia Condition: Stable Disposition: HOME, SELF-CARE Instructions: Umbilical Hernia ([facility]) Additional Instructions: Please call the surgeon as soon as possible to arrange for follow-up. Prescriptions: Hydrocodone/Acetaminophen [[place] 5-325 mg Tablet] 1 tab PO Q6 PRN 4 Days #12 tablet PRN Reason: Referrals: FAVIOLA COOK MD [ACTIVE STAFF] - 04/03/17
== END 2017-03-27 17:05 | disposition home or self-care (01) ==
LOC: ER 16:12
DX: K42.9 Umbilical hernia without obstruction or gangrene (principal); Z88.0 Allergy status to penicillin
CPT/HCPCS: 99283

== ENCOUNTER 2017-03-28 13:30 | Emergency (ER) | payer SELFPAY ==
--- NOTE | 2017-03-28 14:01 | ER Document Report ---
ED Medical Screen (RME) - General Chief Complaint: Abdominal Pain Stated Complaint: ABDOMINAL PAIN,DIARRHEA Time Seen by Provider: 03/28/17 13:45 Notes: 26-year-old female patient comes emergency room complaining of umbilical pain going into her back. She reports symptoms first started 2 days ago, was seen in the emergency room yesterday and found to have an easily reducing umbilical hernia by history. She was discharged with prescription for [place]. She states she had not been able to have a bowel movement until 1:00 this morning when she had diarrhea. Now she has tenesmus but unable to pass any stool. States she cannot eat. States pain is worse. States the pain is mostly gone from umbilical region into the right lower quadrant and to her right flank. Brief exam shows patient is very tender to palpate the lumbar muscles bilaterally, worse on the left than the right. There is no CVA percussion tenderness. Abdomen is soft and there is some tenderness in the periumbilical and lower abdomen region. I have greeted and performed a rapid initial assessment of this patient. A comprehensive ED assessment and evaluation of the patient, analysis of test results and completion of the medical decision making process will be conducted by additional ED providers. TRAVEL OUTSIDE OF THE [place] IN LAST 30 DAYS: No - Related Data Allergies/Adverse Reactions: Penicillins Allergy (Verified 03/27/17 16:16) Generalized Itching Past Medical History Renal/ Medical History: Reports: Hx Ovarian Cysts. Denies: Hx Peritoneal Dialysis Psychiatric Medical History: Reports: Hx Anxiety Past Surgical History: Reports: Hx Section - x2, Hx Gynecologic Surgery - 06/2012, Hx Tubal Ligation - Immunizations Hx Diphtheria, Pertussis, Tetanus Vaccination: Yes Physical Exam - Vital signs Vitals: Temp Pulse Resp BP Pulse Ox 98.1 F 98 16 104/68 93 03/28/17 13:43 03/28/17 13:43 03/28/17 13:43 03/28/17 13:43 03/28/17 13:43 Course - Vital Signs Vital signs: Temp Pulse Resp BP Pulse Ox 98.1 F 98 16 104/68 93 03/28/17 13:43 03/28/17 13:43 03/28/17 13:43 03/28/17 13:43 03/28/17 13:43
[2017-03-28 14:14] LABS: ABSOLUTE BASOPHILS # (AUTO) 0.1 10^3/uL (0.0-0.2); ABSOLUTE EOSINOPHILS # (AUTO) 0.1 10^3/uL (0.0-0.6); ABSOLUTE LYMPHOCYTES (AUTO) 0.7 10^3/uL (0.5-4.7); ABSOLUTE MONOCYTES (AUTO) 0.5 10^3/uL (0.1-1.4); ABSOLUTE NEUT (AUTO) 4.7 10^3/uL (1.7-8.2); BASOPHILS % (AUTO) 1.1 % (0-2); HEMATOCRIT 35.5 % (36.0-47.0); HEMOGLOBIN 11.9 g/dL (12.0-15.5); HGB HCT DIFFERENCE 0.2; LYMPHOCYTES % (AUTO) 12.1 % (13-45); MEAN CORPUSCULAR HEMOGLOBIN 25.8 pg (27.0-33.4); MEAN CORPUSCULAR HGB CONC 33.6 g/dL (32.0-36.0); MEAN CORPUSCULAR VOLUME 77 fl (80-97); MONOCYTES % (AUTO) 8.4 % (3-13); RED BLOOD COUNT 4.62 10^6/uL (3.72-5.28); RED CELL DISTRIBUTION WIDTH 14.9 % (11.5-14.0); SEGMENTED NEUTROPHILS % (AUTO) 77.4 % (42-78); WHITE BLOOD COUNT 6.1 10^3/uL (4.0-10.5)
[2017-03-28 14:31] LABS: ALANINE AMINOTRANSFERASE 23 U/L (9-52); ALBUMIN 3.9 g/dL (3.5-5.0); ALKALINE PHOSPHATASE 38 U/L (38-126); ANION GAP 7 (5-19); ASPARTATE AMINO TRANSFERASE 12 U/L (14-36); BILIRUBIN,DIRECT 0.3 mg/dL (0.0-0.4); BILIRUBIN,TOTAL 0.7 mg/dL (0.2-1.3); BLOOD UREA NITROGEN 12 mg/dL (7-20); CALCIUM 9.3 mg/dL (8.4-10.2); CARBON DIOXIDE 27 mmol/L (22-30); CHLORIDE 102 mmol/L (98-107); CREATININE RESULT 0.53 mg/dL (0.52-1.25); GLUCOSE 102 mg/dL (75-110); SODIUM 136.4 mmol/L (137-145); TOTAL PROTEIN 6.1 g/dL (6.3-8.2)
--- NOTE | 2017-03-28 14:41 | RADIOLOGY REPORT (SQ) ---
EXAM DESCRIPTION: KUB/ABDOMEN (SINGLE VIEW) COMPLETED DATE/TIME: 03/28/2017 2:17 pm REASON FOR STUDY: umbilical pain, no BM, then diarhhea, now tenesmus COMPARISON: None. NUMBER OF VIEWS: One view. TECHNIQUE: Supine radiographic image of the abdomen acquired. LIMITATIONS: None. FINDINGS: BOWEL GAS PATTERN: Normal bowel gas pattern. No dilated loops. CALCIFICATIONS: No suspicious calcifications. SOFT TISSUES: No gross mass or suggestion of organomegaly. HARDWARE: None in the abdomen. BONES: No acute fracture. No worrisome bone lesions. OTHER: No other significant finding. IMPRESSION: NO RADIOGRAPHIC EVIDENCE FOR ACUTE ABDOMINAL DISEASE. TECHNICAL DOCUMENTATION: JOB ID: [id number] [employer]- All Rights Reserved
[2017-03-28] MEDS ORDERED: FENTANYL CITRATE INJ/PF 100 MCG/2 ML AMPUL IV ONE (16:06)
--- NOTE | 2017-03-28 16:15 | ER Document Report ---
ED General - General Chief Complaint: Abdominal Pain Stated Complaint: ABDOMINAL PAIN,DIARRHEA Time Seen by Provider: 03/28/17 13:45 Notes: Patient presents with ester-umbilical abdominal pain radiating to the right lower quadrant for 2 days, recent medical hernia diagnosis she says that she is only noticed a hernia for 3 days. Positive diarrhea negative nausea vomiting. Positive decreased oral intake. Denies fevers or urinary or vaginal complaints. She has been in the ED several times for abdominal pain most recently 2 days ago where she was diagnosed the umbilical hernia for the first time. TRAVEL OUTSIDE OF THE [place] IN LAST 30 DAYS: No - Related Data Allergies/Adverse Reactions: Penicillins Allergy (Verified 03/27/17 16:16) Generalized Itching Past Medical History - Social History Smoking Status: Never Smoker Chew tobacco use (# tins/day): No Frequency of alcohol use: None Drug Abuse: None Family History: Reviewed & Not Pertinent Patient has suicidal ideation: No Patient has homicidal ideation: No Renal/ Medical History: Reports: Hx Ovarian Cysts. Denies: Hx Peritoneal Dialysis Psychiatric Medical History: Reports: Hx Anxiety Past Surgical History: Reports: Hx Section - x2, Hx Gynecologic Surgery - 06/2012, Hx Tubal Ligation - Immunizations Hx Diphtheria, Pertussis, Tetanus Vaccination: Yes Review of Systems - Review of Systems Notes: REVIEW OF SYSTEMS GEN: Denies fever, chills, weight loss ENT: Denies sore throat, nasal discharge, ear pain EYES: Denies blurry vision, eye pain, discharge CV: Denies chest pain, palpitations, edema RESP: Denies cough, shortness of breath, wheezing GI: Hernia abdominal pain diarrhea Muscular skeletal:no joint pain or swelling SKIN: Denies rash, skin lesions LYMPH: Denies swollen glands/lymph nodes NEURO: Denies headache, focal weakness or numbness, dizziness PSYCH: Denies depression, suicidal or homicidal ideation PHYSICAL EXAMINATION General: No acute distress, well-nourished Head: Atraumatic, normocephalic ENT: Mouth normal, oropharynx moist, no exudates or tonsillar enlargement Eyes: Conjunctiva normal, pupils equal, lids normal Neck: No JVD, supple, no guarding CVS: Normal rate, regular rhythm, no murmurs Resp: No resp distress, equal and normal breath sounds bilaterally GI: Nondistended, soft, positive umbilical hernia, reducible, diffuse lower abdominal pain with rebound. Ext: No deformities, no edema, normal range of motion in upper and lower ext Back: No CVA or midline TTP Skin: No rash, warm Lymphatic: No lymphadeopathy noted Neuro: Awake, alert. Face symmetric. GCS 15. Physical Exam - Vital signs Vitals: Temp Pulse Resp BP Pulse Ox 98.1 F 98 16 104/68 93 03/28/17 13:43 03/28/17 13:43 03/28/17 13:43 03/28/17 13:43 03/28/17 13:43 Course - Re-evaluation Re-evalutation: 03/28/17 16:14 Umbilical hernia, lower abdominal pain, diarrhea. Afebrile with good vital signs. Patient is tender. Differential includes obstruction versus appendicitis versus diverticular this less likely incarcerated hernia given the fact that her hernia is completely reducible. Query chronic abdominal pain. Workup: Labs already ordered, KUB done but I will get a CT to rule out appendicitis. 03/28/17 17:[address] shows right ovarian cyst with good flow, patient's clinical picture not consistent with torsion. Medical hernia is present but contains only fat and is reducible. Will discharge home in stable condition follow-up with surgery. Motrin for pain. I have discussed with the patient there likely diagnosis, aftercare plan, follow -up plans and my usual and customary return precautions. They verbalized understanding of this. - Vital Signs Vital signs: Temp Pulse Resp BP Pulse Ox 98.1 F 98 16 104/68 93 03/28/17 13:43 03/28/17 13:43 03/28/17 13:43 03/28/17 13:43 03/28/17 13:43 - Laboratory Result Diagrams: 03/28/17 14:05 03/28/17 14:05 Laboratory results interpreted by me: 03/28/17 03/28/17 14:05 14:05 Hgb 11.9 L Hct 35.5 L MCV 77 L MCH 25.8 L RDW 14.9 H Lymphocytes % 12.1 L Sodium 136.4 L AST 12 L Total Protein 6.1 L Discharge - Discharge Clinical Impression: Umbilical hernia without obstruction and without gangrene Ovarian cyst Qualifiers: Laterality: right Qualified Code(s): N83.201 - Unspecified ovarian cyst, right side Condition: Good Disposition: HOME, SELF-CARE Instructions: Abdominal Pain ([facility]) Additional Instructions: Please take ibuprofen [id number] for your ovarian cyst pain. Her hernia needs to be dealt with by a surgeon and can be seen in the office.
--- NOTE | 2017-03-28 17:11 | RADIOLOGY REPORT (SQ) ---
EXAM DESCRIPTION: CT ABD/PELVIS WITH IV ONLY COMPLETED DATE/TIME: 03/28/2017 4:52 pm REASON FOR STUDY: umb hernia and RLQ pain COMPARISON: None. TECHNIQUE: CT scan of the abdomen and pelvis performed using helical scanning technique with dynamic intravenous contrast injection. No oral contrast. Images reviewed with lung, soft tissue, and bone windows. Reconstructed coronal and sagittal MPR images reviewed. Delayed images for evaluation of the urinary system also acquired. All images stored on PACS. All CT scanners at this facility use dose modulation, iterative reconstruction, and/or weight based d osing when appropriate to reduce radiation dose to as low as reasonably achievable (ALARA). [facility]: Dose Right [facility]: CareDose [facility]: Dose Right [facility]: Teradose 4D [facility]: [place] CONTRAST TYPE AND DOSE: Not recorded by technologist. RENAL FUNCTION: GFR > 60. RADIATION DOSE: . LIMITATIONS: Motion. FINDINGS: LOWER CHEST: No significant findings. No nodules or infiltrates. LIVER: Normal size. No masses. No dilated ducts. SPLEEN: Normal size. No focal lesions. PANCREAS: No masses. No significant calcifications. No adjacent inflammation or peripancreatic fluid collections. Pancreatic duct not dilated. GALLBLADDER: No identified stones by CT criteria. No inflammatory changes to suggest cholecystitis. ADRENAL GLANDS: No significant masses or asymmetry. RIGHT KIDNEY AND URETER: No solid masses. No significant calcifications. No hydronephrosis or hyd roureter. LEFT KIDNEY AND URETER: No solid masses. No significant calcifications. No hydronephrosis or hydr oureter. AORTA AND VESSELS: No aneurysm. No dissection. Renal arteries, SMA, celiac without stenosis. RETROPERITONEUM: No retroperitoneal adenopathy, hemorrhage or masses. BOWEL AND PERITONEAL CAVITY: No masses or inflammatory changes. No free fluid or peritoneal masses. APPENDIX: Normal. PELVIS: 3 cm diameter right ovarian cyst. ABDOMINAL WALL: Small umbilical hernia containing fat. BONES: No significant or acute findings. OTHER: No other significant finding. IMPRESSION: Right ovarian cyst. TECHNICAL DOCUMENTATION: JOB ID: [id number] Quality ID # [id number]: Final reports with documentation of one or more dose reduction techniques (e.g., Au tomated exposure control, adjustment of the mA and/or kV according to patient size, use of iterative reconstruction technique) 2010 [employer]- All Rights Reserved
[2017-03-28 19:04] VITALS: BP 104/65
== END 2017-03-28 19:05 | disposition home or self-care (01) ==
LOC: ER 13:30
DX: K42.9 Umbilical hernia without obstruction or gangrene (principal); N83.201 Unspecified ovarian cyst, right side; R19.7 Diarrhea, unspecified; Z88.0 Allergy status to penicillin
CPT/HCPCS: 99284; 36415; 85025; 80053; 74177; 74000; J3010

== ENCOUNTER 2017-04-10 15:23 | Emergency (ER) | payer SELFPAY ==
[2017-04-10 15:38] VITALS: BP 108/66
--- NOTE | 2017-04-10 15:56 | ER Document Report ---
ED General - General Chief Complaint: Lower Abdominal Pain Stated Complaint: ABDOMINAL PAIN Time Seen by Provider: 04/10/17 15:42 Mode of Arrival: Ambulatory Information source: Patient Notes: Patient presents with periumbilical and lower abdominal cramping pain. It is intermittent. Nothing seems to make it better or worse. It does not radiate. It is moderate to severe in intensity and sharp. She has been seen here for this problem 3 other times. She has had a negative evaluation other than a right ovarian cyst being seen on imaging. On a previous exam an umbilical hernia was noted. She has been unable to arrange follow-up. TRAVEL OUTSIDE OF THE [place] IN LAST 30 DAYS: No - Related Data Allergies/Adverse Reactions: Penicillins Allergy (Verified 04/10/17 15:24) Generalized Itching Past Medical History - General Information source: Patient - Social History Smoking Status: Never Smoker Frequency of alcohol use: Occasional Drug Abuse: None Family History: Reviewed & Not Pertinent Patient has suicidal ideation: No Patient has homicidal ideation: No Renal/ Medical History: Reports: Hx Ovarian Cysts. Denies: Hx Peritoneal Dialysis Psychiatric Medical History: Reports: Hx Anxiety Past Surgical History: Reports: Hx Section - x2, Hx Gynecologic Surgery - 06/2012, Hx Tubal Ligation - Immunizations Hx Diphtheria, Pertussis, Tetanus Vaccination: Yes Review of Systems - Review of Systems Constitutional: denies: Chills, Fever Cardiovascular: denies: Chest pain, Dyspnea Respiratory: denies: Cough, Short of breath Gastrointestinal: Abdominal pain Physical Exam - Vital signs Vitals: Temp Pulse Resp BP Pulse Ox 98.2 F 80 20 108/66 99 04/10/17 15:37 04/10/17 15:37 04/10/17 15:37 04/10/17 15:37 04/10/17 15:37 Interpretation: Normal - General General appearance: Appears well, Alert - HEENT Head: Normocephalic, Atraumatic Eyes: Normal Pupils: PERRL - Respiratory Respiratory status: No respiratory distress Chest status: Nontender Breath sounds: Normal Chest palpation: Normal - Cardiovascular Rhythm: Regular Heart sounds: Normal auscultation Murmur: No - Abdominal Inspection: Normal Distension: No distension Bowel sounds: Normal Tenderness: Tender - No umbilical hernia was appreciated at this time. However patient did have some mild tenderness to palpation periumbilically in the bilateral lower quadrants. Organomegaly: No organomegaly - Back Back: Normal, Nontender - Extremities General upper extremity: Normal inspection, Nontender, Normal color, Normal ROM , Normal temperature General lower extremity: Normal inspection, Nontender, Normal color, Normal ROM , Normal temperature, Normal weight bearing. No: Jeffrey's sign - Neurological Neuro grossly intact: Yes Cognition: Normal Orientation: AAOx4 Jeanne Coma Scale Eye Opening: Spontaneous Jeanne Coma Scale Verbal: Oriented Jeanne Coma Scale Motor: Obeys Commands [place] Coma Scale Total: 15 Speech: Normal Motor strength normal: LUE, RUE, LLE, RLE Sensory: Normal - Psychological Associated symptoms: Normal affect, Normal mood - Skin Skin Temperature: Warm Skin Moisture: Dry Skin Color: Normal Course - Re-evaluation Re-evalutation: 04/10/17 15:54 I discussed with patient that further workup emergency department is not going to be constructive. I told her that she needs a follow-up with a surgeon or at least with a family medical physician who can arrange a referral. I instructed her that her pain is most likely due to the umbilical hernia and/or the ovarian cyst that was seen on a previous CT scan. - Vital Signs Vital signs: Temp Pulse Resp BP Pulse Ox 98.2 F 80 20 108/66 99 04/10/17 15:37 04/10/17 15:37 04/10/17 15:37 04/10/17 15:37 04/10/17 15:37 Discharge - Discharge Clinical Impression: Abdominal pain Qualifiers: Abdominal location: periumbilical Qualified Code(s): R10.33 - Periumbilical pain Condition: Stable Disposition: HOME, SELF-CARE Instructions: Abdominal Pain ([facility]) Prescriptions: Hydrocodone/Acetaminophen [[place] 5-325 mg Tablet] 1 tab PO Q6 PRN 3 Days #12 tablet PRN Reason: Referrals: PRATEEK ANDRES MD [[facility]] - Follow up in 1 week
== END 2017-04-10 16:01 | disposition home or self-care (01) ==
LOC: ER 15:23
DX: R10.33 Periumbilical pain (principal); Z88.0 Allergy status to penicillin; Z98.51 Tubal ligation status
CPT/HCPCS: 99283

== ENCOUNTER 2017-04-19 10:33 | Emergency (ER) | payer SELFPAY ==
--- NOTE | 2017-04-19 11:00 | ER Document Report ---
ED General - General Chief Complaint: Abdominal Pain Stated Complaint: NAUSEA,ABDOMINAL PAIN Time Seen by Provider: 04/19/17 10:52 Notes: 26-year-old female presents with ongoing nausea and ester-umbilical abdominal pain intermittent, only when she eats, for about a month. She has been here 6 times to have an evaluation of this umbilical hernia that she has but is unable to see a surgeon secondary to money issues. She denies pain at the hernia site currently fever chills or decreased bowel movements. TRAVEL OUTSIDE OF THE U.S. IN LAST 30 DAYS: No - Related Data Allergies/Adverse Reactions: Penicillins Allergy (Verified 04/19/17 10:36) Generalized Itching Past Medical History - General Information source: Patient - Social History Smoking Status: Never Smoker Chew tobacco use (# tins/day): No Frequency of alcohol use: None Drug Abuse: None Family History: Reviewed & Not Pertinent Patient has suicidal ideation: No Patient has homicidal ideation: No Renal/ Medical History: Reports: Hx Ovarian Cysts. Denies: Hx Peritoneal Dialysis Psychiatric Medical History: Reports: Hx Anxiety Past Surgical History: Reports: Hx Section - x2, Hx Gynecologic Surgery - 06/2012, Hx Tubal Ligation - Immunizations Hx Diphtheria, Pertussis, Tetanus Vaccination: Yes Review of Systems - Review of Systems Notes: REVIEW OF SYSTEMS GEN: Denies fever, chills, weight loss ENT: Denies sore throat, nasal discharge, ear pain EYES: Denies blurry vision, eye pain, discharge CV: Denies chest pain, palpitations, edema RESP: Denies cough, shortness of breath, wheezing GI: D abdominal pain vomiting MSK: Denies joint pain/swelling, edema, SKIN: Denies rash, skin lesions LYMPH: Denies swollen glands/lymph nodes NEURO: Denies headache, focal weakness or numbness, dizziness PSYCH: Denies depression, suicidal or homicidal ideation PHYSICAL EXAMINATION General: No acute distress, well-nourished Head: Atraumatic, normocephalic ENT: Mouth normal, oropharynx moist, no exudates or tonsillar enlargement Eyes: Conjunctiva normal, pupils equal, lids normal Neck: No JVD, supple, no guarding CVS: Normal rate, regular rhythm, no murmurs Resp: No resp distress, equal and normal breath sounds bilaterally GI: Nondistended, soft, no tenderness to palpation, no rebound or guarding. Reducible umbilical hernia. Ext: No deformities, no edema, normal range of motion in upper and lower ext Back: No CVA or midline TTP Skin: No rash, warm Lymphatic: No lymphadeopathy noted Neuro: Awake, alert. Face symmetric. GCS 15. Physical Exam - Vital signs Vitals: Temp Pulse Resp BP Pulse Ox 97.4 F 63 16 112/65 100 04/19/17 10:41 04/19/17 10:41 04/19/17 10:41 04/19/17 10:41 04/19/17 10:41 Course - Re-evaluation Re-evalutation: 04/19/17 10:59 Patient presents with repeat visit for umbilical hernia which seems to be symptomatic, versus gastritis. She has a reducible hernia, has had it evaluated with labs and CT multiple times. Do not think she needs testing today. Will prescribe Zofran, speak with social work about getting her into a general surgeon so she can get this dealt with. She is no tenderness and normal vitals. I have discussed with the patient there likely diagnosis, aftercare plan, follow-up plans and my usual and customary return precautions. They verbalized understanding of this. - Vital Signs Vital signs: Temp Pulse Resp BP Pulse Ox 97.4 F 63 16 112/65 100 04/19/17 10:41 04/19/17 10:41 04/19/17 10:41 04/19/17 10:41 04/19/17 10:41 Discharge - Discharge Clinical Impression: Umbilical hernia without mention of obstruction or gangrene Qualifiers: Obstruction and gangrene presence: without obstruction or gangrene Qualified Code(s): K42.9 - Umbilical hernia without obstruction or gangrene Condition: Good Disposition: HOME, SELF-CARE Instructions: Abdominal Pain ([facility]) Additional Instructions: As we discussed I can treat her nausea but until you have a surgeon evaluate her hernia is still going to bother you. Please take the medicine I am prescribing and find a way to contact the surgeon. Prescriptions: Ondansetron [Zofran Odt 4 mg Tablet] 1 - 2 tab PO Q4H PRN #15 tab.rapdis PRN Reason: For Nausea/Vomiting
[2017-04-19 11:22] VITALS: BP 110/68
== END 2017-04-19 11:20 | disposition home or self-care (01) ==
LOC: ER 10:33
DX: K42.9 Umbilical hernia without obstruction or gangrene (principal); R10.9 Unspecified abdominal pain; R11.0 Nausea; R10.33 Periumbilical pain
CPT/HCPCS: 99283

== ENCOUNTER 2017-04-22 16:07 | Emergency (ER) | payer SELFPAY ==
[2017-04-22 16:50] VITALS: BP 109/74
--- NOTE | 2017-04-22 17:54 | ER Document Report ---
HPI - HPI Patient complains to provider of: Nodule to wrist Onset: Other - A few weeks Onset/Duration: Persistent Quality of pain: Achy Pain Level: 3 Context: Patient complains of a tender nodule to the left wrist area. Patient denies any injury. Patient states that she has had persistent pain which prompted her to come in today. Associated Symptoms: Other - Left wrist pain Exacerbated by: Movement Relieved by: Denies Similar symptoms previously: No Recently seen / treated by doctor: No - ROS ROS below otherwise negative: Yes Systems Reviewed and Negative: Yes All other systems reviewed and negative - CONSTITUTIONAL Constitutional: DENIES: Fever - MUSCULOSKELETAL Musculoskeletal: REPORTS: Extremity pain Past Medical History - Social History Smoking Status: Current Some Day Smoker Chew tobacco use (# tins/day): No Frequency of alcohol use: None Drug Abuse: None Family History: Reviewed & Not Pertinent Patient has suicidal ideation: No Patient has homicidal ideation: No Renal/ Medical History: Reports: Hx Ovarian Cysts. Denies: Hx Peritoneal Dialysis Psychiatric Medical History: Reports: Hx Anxiety, Hx Bipolar Disorder, Hx Depression Past Surgical History: Reports: Hx Section - x2, Hx Gynecologic Surgery - 06/2012, Hx Tubal Ligation - Immunizations Hx Diphtheria, Pertussis, Tetanus Vaccination: Yes Vertical Provider Document - CONSTITUTIONAL Agree With Documented VS: Yes Exam Limitations: No Limitations General Appearance: WD/WN, No Apparent Distress - INFECTION CONTROL TRAVEL OUTSIDE OF THE U.S. IN LAST 30 DAYS: No - HEENT HEENT: Atraumatic, Normocephalic - NECK Neck: Normal Inspection, Supple - RESPIRATORY Respiratory: Breath Sounds Normal, No Respiratory Distress O2 Sat by Pulse Oximetry: 100 - CARDIOVASCULAR Cardiovascular: Regular Rate, Regular Rhythm, No Murmur Pulses: Normal: Radial - MUSCULOSKELETAL/EXTREMETIES Musculoskeletal/Extremeties: MAEW, Tender - right wrist, No Edema - NEURO Level of Consciousness: Awake, Alert, Appropriate Motor/Sensory: No Motor Deficit - DERM Integumentary: Warm, Dry Notes: Very discrete quarter centimeter nodular skin lesion to the ulnar aspect of left wrist, normal skin color overlying area, no concern for abscess. Suspect patient likely has cystic type lesion. Course - Re-evaluation Re-evalutation: 04/22/17 17:53 In preparing patient for discharge, patient requesting to speak with mental health professional. Patient denies any suicidal homicidal ideation. Patient reports a history of anxiety, depression and bipolar disease and is not currently on medications due to lack of insurance. Chanell with mental health team advised, she will place a call to Dr. Sinclair. 04/22/17 18:[address] Sinclair via telemedicine at bedside 04/22/17 18:50 After consultation with mental health team and Dr. Sinclair it was recommended to have patient start BuSpar 5 mg twice a day as well as Depakote 500 mg nightly and have her [facility] with [facility] for which she can call them 24 hours a day 7 days a week. Is also advised to have patient follow-up with [facility] as patient is currently without insurance. - Vital Signs Vital signs: Temp Pulse Resp BP Pulse Ox 98.4 F 84 17 109/74 100 04/22/17 16:48 04/22/17 16:48 04/22/17 16:48 04/22/17 16:48 04/22/17 16:48 Discharge - Discharge Clinical Impression: Skin nodule, Hx of bipolar disorder Condition: Stable Disposition: HOME, SELF-CARE Instructions: Bipolar Disorder ([facility]) Additional Instructions: Return immediately for any new or worsening symptoms Followup with your primary care provider, call tomorrow to make a followup appointment Follow-up with [facility] for further evaluation, call Sunday for an appointment Follow-up with [facility], their contact information is on the handout provided Prescriptions: Divalproex Sodium [Depakote ER] 500 mg PO QHS #10 tab.er.24h Buspirone HCl [Buspar 5 mg Tablet] 1 tab PO BID #20 tab Referrals: [facility] [Provider Group] - 04/24/17 [facility] [Provider Group] - 04/22/17
--- NOTE | 2017-04-22 19:39 | PSYCHOLOGICAL NOTE ---
Psych Note - Psych Note Psych Note: Patient reported "I have not been feeling like myself." She indicated being off her psychiatric medication for about a month secondary to not being able to afford the medications. She reported she was "anxious" because she has not had her Xanax for or Prozac for one month and no percocet for one week. When about her PCP she reported she could not afford to go to a PCP. When asked about following up with [facility], she indicated "it takes a while to get in there" despite it being 7 months since she began coming to the ED in 2017 regularly.Patient reported she has an appointment with Dr. Snyder next week if she can afford it to get her Xanax (0.5 mg tid) and Prozac (20 mg qd) refilled. She initially reported Dr. Snyder also prescribed her percocet then stated she only received percocet from the ED. Patient reported she received the diagnosis of Bipolar Disorder approximately 3 years ago by Jeni Cooper MD in [place]. She reported unsuccessful trials with Latuda, Paraje, and Wellbutrin. She reported experiencing a seizure when she ran out of Xanax and subsequently had to stop cold turkey. patient reported feeling tired, difficulty sleeping, racing thoughts. Patient reported a suicide attempt in 2006 by cutting her wrists, requiring an inpatient psychiatric stay at [facility] in [place], [place] for 7 days. She denied another psychiatric hospitalizations or suicide attempts. She also denied any substance abuse problems or stays in detox or substance abuse rehabilitations. She reported a positive medical history for inguinal hernia following the of her 4th child, but having abdominal problems dating back to her teenage years. She reported her children are ages 5, 4,3 and 8 months old. She indicated she has lived in [place] for 6 years and been for the past 5 years. She reported her mother lives in [place] and is considered a source of support. Patient is alert and oriented to person, place, time, and circumstance. Mood was dysthymic and affect was flat and blunted. Patient denied suicidal / homicidal ideation, intent, or plan. She denied auditory / visual hallucinations no delusions were noted. Thought processes were linear, organized , and rational. Eye contact was good. Conversational speech was within normal limits for rate, tone, and prosody. Intellectual abilities were estimated within the average range. Attention and concentration was good. Insight, judgment, and impulse control were fair. Patient was noted to defer to her for most of the answers to questions rather than answer questions herself. She reported she was shy and was at times guarded. When advised she would not likely receive narcotic or benzodiazepine medications from the ED any further given her failure to follow up with outpatient PCP, Patient appeared deflated and even less engaged. The [place] Controlled Substance Registry was consulted and it demonstrated the Patient received Xanax prescriptions from Dr. Snyder monthly, 90 in quantity ( 0.5 mg) since August 2016, and previous to that from Dr. Jeni Cooper dating back multiple years. She received these medications in her name of "Reshma. " Further review revealed she received oxycodone/hydrocodone and Xanax from multiple providers, predominantly dentists and other medical doctors, using her maiden name of Alfred. These were last obtained in April of 2016. 1. Bipolar Disorder, By Patient Report 2. Rule Out Benzodiazepine Use Disorder Impression / Plan: Patient is psychiatrically clear for discharge. Patient has presented to the ED 7 times in the last 2 months for reported abdominal pain. She received hydrocodone on at least 2 of these visits. On today's date she reports ongoing anxiety and asked for her medications to be refilled (Xanax, Prozac and Percocet). Patient could not provide a reasonable answer to why she has not obtained a PCP for follow up of her reported abdominal pain. She was advised it was unlikely she would continue to receive narcotics or benzodiazepines as an outpatient from the ED given her failure to obtain a PCP and her continued return. Review of the [place] Controlled Substance Registry revealed she is prescribed Xanax from Dr. Snyder but has not received a script since January 2017 which is about the time she began coming to the ED regularly ( Feb 2017). Patient was provided education on appropriate medications for Bipolar Disorder and given outpatient referrals for follow up who do not require insurance. She agreed to follow up with [facility] in [place] and was provided their information. In addition, [facility] Psychiatrist recommended Depakote 250 mg bid or 500 mg daily (whichever is cheaper) and Buspar 5 mg twice per day for treatment of the Patient's symptoms. Patient denied she was breast feeding. ED Physician in agreement with recommendation and disposition.
== END 2017-04-22 19:17 | disposition home or self-care (01) ==
LOC: ER 16:07
DX: R22.32 Localized swelling, mass and lump, left upper limb (principal); M25.532 Pain in left wrist; F31.9 Bipolar disorder, unspecified; F17.200 Nicotine dependence, unspecified, uncomplicated
CPT/HCPCS: 99284

== ENCOUNTER 2017-05-12 16:53 | Emergency (ER) | payer SELFPAY ==
[2017-05-12 17:15] VITALS: BP 110/68
--- NOTE | 2017-05-12 17:47 | ER Document Report ---
ED Medical Screen (RME) - General Chief Complaint: Headache Stated Complaint: HEAD PAIN Time Seen by Provider: 05/12/17 17:43 Mode of Arrival: Ambulatory Information source: Patient Notes: 26-year-old female presenting with complaints of a "knot on her head" for the last 2 weeks. Patient states she noticed a small bump there 2 weeks ago. Patient has a history of migraine headaches. Patient states she has noticed an associated headache with this blurry vision and nausea. Patient denies any trauma. TRAVEL OUTSIDE OF THE [place] IN LAST 30 DAYS: No - Related Data Allergies/Adverse Reactions: Penicillins Allergy (Verified 04/22/17 16:08) Generalized Itching Past Medical History - General Information source: [facility] Records - Social History Chew tobacco use (# tins/day): No Drug Abuse: None Renal/ Medical History: Reports: Hx Ovarian Cysts. Denies: Hx Peritoneal Dialysis Psychiatric Medical History: Reports: Hx Anxiety, Hx Bipolar Disorder, Hx Depression Past Surgical History: Reports: Hx Section - x2, Hx Gynecologic Surgery - 06/2012, Hx Tubal Ligation - Immunizations Hx Diphtheria, Pertussis, Tetanus Vaccination: Yes Review of Systems - Review of Systems EENT: See HPI, Other - "bump" on head Neurological/Psychological: See HPI, Headaches Physical Exam - Vital signs Vitals: Temp Pulse Resp BP Pulse Ox 98.2 F 63 14 110/68 100 05/12/17 17:13 05/12/17 17:13 05/12/17 17:13 05/12/17 17:13 05/12/17 17:13 - General General appearance: Appears well In distress: None - HEENT Head: Normocephalic, Atraumatic, Other - Mild tenderness with palpation just left of the crown of the head - Respiratory Respiratory status: No respiratory distress - Cardiovascular Rhythm: Regular Heart sounds: Normal auscultation Murmur: No Course - Vital Signs Vital signs: Temp Pulse Resp BP Pulse Ox 98.2 F 63 14 110/68 100 05/12/17 17:13 05/12/17 17:13 05/12/17 17:13 05/12/17 17:13 05/12/17 17:13 Scribe Documentation - Scribe Written by Jonah:: Jonah Shi, 05/12/2017 183 acting as scribe for :: Lisa
--- NOTE | 2017-05-12 18:26 | RADIOLOGY REPORT (SQ) ---
EXAM DESCRIPTION: CT HEAD WITHOUT COMPLETED DATE/TIME: 05/12/2017 5:57 pm REASON FOR STUDY: GRAY COMPARISON: None. TECHNIQUE: Axial images acquired through the brain without intravenous contrast. Images reviewed wi th bone, brain and subdural windows. Images stored on PACS. All CT scanners at this facility use dose modulation, iterative reconstruction, and/or weight based d osing when appropriate to reduce radiation dose to as low as reasonably achievable (ALARA). [facility]: Dose Right [facility]: CareDose [facility]: Dose Right [facility]: Teradose 4D [facility]: Flyzik RADIATION DOSE: CT Rad equipment meets quality standard of care and radiation dose reduction techniq ues were employed. CTDIvol: 64.6 mGy. DLP: 1163 mGy-cm. mGy. LIMITATIONS: None. FINDINGS: VENTRICLES: Normal size and contour. CEREBRUM: No masses. No hemorrhage. No midline shift. No evidence for acute infarction. Normal gra y/white matter differentiation. No areas of low density in the white matter. CEREBELLUM: No masses. No hemorrhage. No alteration of density. No evidence for acute infarction. EXTRAAXIAL SPACES: No fluid collections. No masses. ORBITS AND GLOBE: No intra- or extraconal masses. Normal contour of globe without masses. CALVARIUM: No fracture. PARANASAL SINUSES: No fluid or mucosal thickening. SOFT TISSUES: Left parietal soft tissue thickening/ mass. OTHER: No other significant finding. IMPRESSION: 1. Normal brain CT without contrast. 2. Masslike thickening of the left parietal scalp. Recommend direct visualization. EVIDENCE OF ACUTE STROKE: NO. COMMENT: Quality ID # [id number]: Final reports with documentation of one or more dose reduction techniques (e.g., Automated exposure control, adjustment of the mA and/or kV according to patient size, use of iterative reconstruction technique) TECHNICAL DOCUMENTATION: JOB ID: [id number] [employer]- All Rights Reserved
[2017-05-12] MEDS ORDERED: ACETAMINOPHEN 325 MG TABLET PO ONE (19:58)
[2017-05-12] MEDS ORDERED: LIDOCAINE 2% JELLY 5 ML TUBE TOP ONE (20:47)
[2017-05-12] MEDS ORDERED: PROCHLORPERAZINE EDISYLATE INJ 10 MG/2 ML VIAL IV ONE (20:47)
[2017-05-12] MEDS ORDERED: KETOROLAC TROMETHAMINE INJ/PF 30 MG/1 ML SDV IV ONE (20:47)
[2017-05-12] MEDS ORDERED: DIPHENHYDRAMINE HCL 50 MG/ML VIAL IV ONE (20:48)
[2017-05-12] MEDS ORDERED: DEXAMETHASONE SOD PHOS INJ 10 MG/1 ML VIAL IV ONE (20:48)
--- NOTE | 2017-05-12 20:50 | ER Document Report ---
ED General - General Chief Complaint: Headache Stated Complaint: HEAD PAIN Time Seen by Provider: 05/12/17 17:43 Mode of Arrival: Ambulatory Notes: Patient is a 26-year-old woman with a past medical history of neurofibromatosis who presents with 2 weeks of an intermittent headache. She does describe it as a severe, constant, aching pain to the left side of her head. Lights, sounds and movement worsen the pain. She states that the headache that she is currently suffering from started 2 days ago and has gotten progressively worse over that period of time. She has tried [id number] remedies without any relief of her pain. She has not seen her primary doctor regarding today's concerns. She states this feels very similar to her prior migraine headaches. She does however note that she has had an area of swelling on top of her left scalp which she believes may be triggering these headaches. She denies any similar focal weakness, numbness, fever or altered mental status. TRAVEL OUTSIDE OF THE [place] IN LAST 30 DAYS: No - Related Data Allergies/Adverse Reactions: Penicillins Allergy (Verified 04/22/17 16:08) Generalized Itching Past Medical History - General Information source: Patient, [facility] Records - Social History Smoking Status: Never Smoker Chew tobacco use (# tins/day): No Frequency of alcohol use: None Drug Abuse: None Lives with: Spouse/Significant other Family History: Reviewed & Not Pertinent Patient has suicidal ideation: No Patient has homicidal ideation: No Renal/ Medical History: Reports: Hx Ovarian Cysts. Denies: Hx Peritoneal Dialysis Psychiatric Medical History: Reports: Hx Anxiety, Hx Bipolar Disorder, Hx Depression Past Surgical History: Reports: Hx Section - x2, Hx Gynecologic Surgery - 06/2012, Hx Tubal Ligation - Immunizations Hx Diphtheria, Pertussis, Tetanus Vaccination: Yes Review of Systems - Review of Systems Notes: Constitutional: Negative for fever. HENT: Negative for sore throat. Eyes: Negative for visual changes. Cardiovascular: Negative for chest pain. Respiratory: Negative for shortness of breath. Gastrointestinal: Negative for abdominal pain, vomiting or diarrhea. Genitourinary: Negative for dysuria. Musculoskeletal: Negative for back pain. Skin: Positive for soft tissue swelling on the left scalp Neurological: Positive for headache 10 point ROS negative except as marked above and in HPI. Physical Exam - Vital signs Vitals: Temp Pulse Resp BP Pulse Ox 98.2 F 63 14 110/68 100 05/12/17 17:13 05/12/17 17:13 05/12/17 17:13 05/12/17 17:13 05/12/17 17:13 Interpretation: Normal Notes: PHYSICAL EXAMINATION: GENERAL: Well-appearing, well-nourished and in no acute distress. HEAD: Atraumatic, normocephalic. EYES: Pupils equal round and reactive to light, extraocular movements intact, sclera anicteric, conjunctiva are normal. ENT: nares patent, oropharynx clear without exudates. Moist mucous membranes. NECK: Normal range of motion, supple without lymphadenopathy LUNGS: Breath sounds clear to auscultation bilaterally and equal. No wheezes rales or rhonchi. HEART: Regular rate and rhythm without murmurs ABDOMEN: Soft, nontender, normoactive bowel sounds. No guarding, no rebound. No masses appreciated. EXTREMITIES: Normal range of motion, no pitting or edema. No cyanosis. NEUROLOGICAL: Face symmetric. Tongue protrudes midline. Extraocular motions intact. Pupils are 2 mm and equally reactive. Normal speech, normal gait. 5 out of 5 strength in both the distal and proximal upper and lower extremities bilaterally. Sensation is grossly intact throughout. Finger to nose testing normal. Pronator drift normal. PSYCH: Normal mood, normal affect. SKIN: Warm, Dry, normal turgor, small 0.25 x 0.25 fluctuant mass in the central left parietal scalp Course - Re-evaluation Re-evalutation: 05/12/17 20:49 Presentation of a headache that appears to be most consistent with tension versus migrainous type headache. Headache was not maximal in onset, patient has no focal neurologic deficits, no nuchal rigidity, vital signs within normal limits, no papilledema, and patient is overall well in appearance. Based on clinical history and examination I do not suspect an acute subarachnoid hemorrhage, dural venous sinus thrombosis, acute meningitis, or intercranial mass. Patient does have a small, fluctuant mass on her left central parietal scalp. This was numbed with a small diagnostic incision made to see if there was any fluid contained within the mass. No fluid could be expressed. Patient does have an history of neurofibromatosis and I suspect that this may be a fibroma. Unfortunately believe this is likely the trigger for patient's headaches. I have informed the patient that she will likely require surgical removal of this fibroma if it continues to trigger headaches. Patient has declined attempting a migraine cocktail to see if this would help her headache. At this time will discharge with return precautions and follow-up recommendations. Verbal discharge instructions given a the bedside and opportunity for questions given. Medication warnings reviewed. Patient is in agreement with this plan and has verbalized understanding of return precautions and the need for primary care follow-up in the next 24-72 hours. - Vital Signs Vital signs: Temp Pulse Resp BP Pulse Ox 98.2 F 63 14 110/68 100 05/12/17 17:13 05/12/17 17:13 05/12/17 17:13 05/12/17 17:13 05/12/17 17:13 - Diagnostic Test Radiology reviewed: Image reviewed, Reports reviewed Radiology results interpreted by me: 05/12/17 21:00 CT head: No acute intracranial bleed or mass. Soft tissue swelling to the left parietal scalp Discharge - Discharge Clinical Impression: Neurofibroma of scalp Migraine headache Qualifiers: Migraine type: unspecified Status migrainosus presence: with status migrainosus Intractability: not intractable Qualified Code(s): G43.901 - Migraine, unspecified, not intractable, with status migrainosus Condition: Good Disposition: HOME, SELF-CARE Additional Instructions: You have been seen in the Emergency Department (ED) for a headache. Please use Tylenol (acetaminophen) or Motrin (ibuprofen) as needed for symptoms, but only as written on the box. As we have discussed, please follow up with your primary care doctor as soon as possible regarding today's ED visit and your headache symptoms. Your symptoms are likely being triggered by a neurofibroma on h your scalp Call your doctor or return to the ED if you have a worsening headache, sudden and severe headache, confusion, slurred speech, facial droop, weakness or numbness in any arm or leg, extreme fatigue, or other symptoms that concern you.
== END 2017-05-12 21:05 | disposition home or self-care (01) ==
LOC: ER 16:53
DX: D36.11 Benign neoplasm of peripheral nerves and autonomic nervous system of face, head, and neck (principal); G43.901 Migraine, unspecified, not intractable, with status migrainosus; Z88.0 Allergy status to penicillin
CPT/HCPCS: 70450; 99284

== ENCOUNTER 2017-05-18 18:01 | Emergency (ER) | payer SELFPAY ==
[2017-05-18] MEDS ORDERED: DIPHENHYDRAMINE HCL 50 MG CAPSULE PO ONE (18:52)
[2017-05-18] MEDS ORDERED: PROCHLORPERAZINE MALEATE 10 MG TABLET PO ONE (18:52)
[2017-05-18] MEDS ORDERED: NAPROXEN 375 MG TABLET PO ONE (18:52)
--- NOTE | 2017-05-18 18:54 | ER Document Report ---
ED Medical Screen (RME) - General Chief Complaint: Headache >24 hrs old Stated Complaint: MIGRAINE, BLURRED VISION, NAUSEA Time Seen by Provider: 05/18/17 18:40 Notes: 26-year-old female patient comes emergency room complaining migraine headache for the past 2 days. Gets frequent migraine headaches. She also complains of abdominal bloating for the past week. Her bowel movements have been normal. Her LMP was 05/14/2017 and was normal and on time. Review of records does show an excessive use of the emergency room. I have greeted and performed a rapid initial assessment of this patient. A comprehensive ED assessment and evaluation of the patient, analysis of test results and completion of the medical decision making process will be conducted by additional ED providers. TRAVEL OUTSIDE OF THE [place] IN LAST 30 DAYS: No - Related Data Allergies/Adverse Reactions: Penicillins Allergy (Verified 05/18/17 18:05) Generalized Itching Past Medical History - Social History Frequency of alcohol use: None Drug Abuse: None Renal/ Medical History: Reports: Hx Ovarian Cysts. Denies: Hx Peritoneal Dialysis Psychiatric Medical History: Reports: Hx Anxiety, Hx Bipolar Disorder, Hx Depression Past Surgical History: Reports: Hx Section - x4, Hx Gynecologic Surgery - 06/2012, Hx Tubal Ligation - Immunizations Hx Diphtheria, Pertussis, Tetanus Vaccination: Yes Physical Exam - Vital signs Vitals: Temp Pulse Resp BP Pulse Ox 98.5 F 90 16 110/66 100 05/18/17 18:26 05/18/17 18:26 05/18/17 18:26 05/18/17 18:26 05/18/17 18:26 Course - Vital Signs Vital signs: Temp Pulse Resp BP Pulse Ox 98.5 F 90 16 110/66 100 05/18/17 18:26 05/18/17 18:26 05/18/17 18:26 05/18/17 18:26 05/18/17 18:26
[2017-05-18 19:23] LABS: ABSOLUTE BASOPHILS # (AUTO) 0.1 10^3/uL (0.0-0.2); ABSOLUTE EOSINOPHILS # (AUTO) 0.2 10^3/uL (0.0-0.6); ABSOLUTE LYMPHOCYTES (AUTO) 1.6 10^3/uL (0.5-4.7); ABSOLUTE MONOCYTES (AUTO) 0.7 10^3/uL (0.1-1.4); ABSOLUTE NEUT (AUTO) 3.4 10^3/uL (1.7-8.2); BASOPHILS % (AUTO) 1.4 % (0-2); EOSINOPHILS % (AUTO) 2.8 % (0-6); HEMATOCRIT 32.2 % (36.0-47.0); HEMOGLOBIN 10.6 g/dL (12.0-15.5); MEAN CORPUSCULAR HEMOGLOBIN 25.9 pg (27.0-33.4); MEAN CORPUSCULAR VOLUME 79 fl (80-97); MONOCYTES % (AUTO) 11.9 % (3-13); PLATELET COUNT 285 10^3/uL (150-450); RED CELL DISTRIBUTION WIDTH 15.2 % (11.5-14.0); SEGMENTED NEUTROPHILS % (AUTO) 56.9 % (42-78); TOTAL CELLS COUNTED % (AUTO) 100 %; WHITE BLOOD COUNT 6.1 10^3/uL (4.0-10.5)
[2017-05-18 19:43] LABS: ALANINE AMINOTRANSFERASE 32 U/L (9-52); ALBUMIN 3.7 g/dL (3.5-5.0); ALKALINE PHOSPHATASE 35 U/L (38-126); ANION GAP 5 (5-19); ASPARTATE AMINO TRANSFERASE 17 U/L (14-36); BILIRUBIN,DIRECT 0.1 mg/dL (0.0-0.4); BILIRUBIN,TOTAL 0.3 mg/dL (0.2-1.3); BLOOD UREA NITROGEN 8 mg/dL (7-20); CALCIUM 9.1 mg/dL (8.4-10.2); CARBON DIOXIDE 31 mmol/L (22-30); CHLORIDE 100 mmol/L (98-107); GLUCOSE 80 mg/dL (75-110); POTASSIUM 4.2 mmol/L (3.6-5.0); SODIUM 136.1 mmol/L (137-145); TOTAL PROTEIN 5.7 g/dL (6.3-8.2)
[2017-05-18 20:15] LABS: AMORPHOUS SEDIMENT,URINE TRACE /HPF; APPEARANCE,URINE CLOUDY; BILIRUBIN,URINE NEGATIVE (NEGATIVE); CALCIUM OXALATE CRYSTALS,URINE FEW /HPF; COLOR,URINE YELLOW; GLUCOSE, URINE NEGATIVE (NEGATIVE); KETONES,URINE NEGATIVE (NEGATIVE); LEUKOCYTE ESTERASE,URINE NEGATIVE (NEGATIVE); NITRITE,URINE NEGATIVE (NEGATIVE); PROTEIN,URINE NEGATIVE (NEGATIVE); URINE SPECIFIC GRAVITY 1.015; UROBILINOGEN,URINE NEGATIVE mg/dL (<2.0)
[2017-05-18] MEDS ORDERED: KETOROLAC TROMETHAMINE 60 MG/2 ML SDV IM ONE (21:34)
--- NOTE | 2017-05-18 21:36 | ER Document Report ---
ED General - General Chief Complaint: Headache >24 hrs old Stated Complaint: HEADACHE, BLURRED VISION, NAUSEA Time Seen by Provider: 05/18/17 18:40 Information source: Patient Notes: This is a 26-year-old female patient to emergency department complaining of a chronic headache. Patient states that she has had a headache on and off for quite some time. Has a history of neurofibromatosis. Was seen here a few days ago. Received CT scan of the head. Was offered migraine treatment but she refused. Was told that she would like to be seen by a concrete mixer operator helper or surgeon to have 1 of these nodules removed which could be causing headaches. States that the headache is still there. Also complaining of bloating in the abdomen. States that she is without a car at this time. Does not want anything that is going to make her sleepy but requesting something for the pain. She is followed by regular doctor in [facility] who prescribes her benzodiazepines. States that she has not been able to see him because she is [employer] and they require $ 75 per visit. TRAVEL OUTSIDE OF THE [place] IN LAST 30 DAYS: No - HPI Onset: Last week Onset/Duration: Gradual Severity: Moderate Pain Level: 2 Associated symptoms: Headache, Nausea Exacerbated by: Denies Relieved by: Denies - Related Data Allergies/Adverse Reactions: Penicillins Allergy (Verified 05/18/17 18:05) Generalized Itching Past Medical History - General Information source: Patient - Social History Smoking Status: Never Smoker Cigarette use (# per day): No Frequency of alcohol use: None Drug Abuse: None Lives with: Spouse/Significant other Family History: Reviewed & Not Pertinent Patient has suicidal ideation: No Patient has homicidal ideation: No - Past Medical History Cardiac Medical History: Reports: None Pulmonary Medical History: Reports: None EENT Medical History: Reports: None Neurological Medical History: Reports: Hx Migraine Other: Neurofibromatosis Endocrine Medical History: Reports: None Renal/ Medical History: Reports: Hx Ovarian Cysts. Denies: Hx Peritoneal Dialysis Malignancy Medical History: Reports: None GI Medical History: Reports: None Musculoskeltal Medical History: Reports None Skin Medical History: Reports None Psychiatric Medical History: Reports: Hx Anxiety, Hx Bipolar Disorder, Hx Depression Infectious Medical History: Reports: None Past Surgical History: Reports: Hx Section - x4, Hx Gynecologic Surgery - 06/2012, Hx Tubal Ligation - Immunizations Hx Diphtheria, Pertussis, Tetanus Vaccination: Yes Review of Systems - Review of Systems Constitutional: denies: Fever, Malaise, Weakness EENT: Blurred vision. denies: Eye pain, Eye discharge, Double vision Cardiovascular: denies: Chest pain, Palpitations, Heart racing Respiratory: denies: Cough, Hurts to breathe, Short of breath, Wheezing Gastrointestinal: Other - Thinks that her lower abdomen is swollen. denies: Abdominal pain, Diarrhea, Nausea Genitourinary: denies: Burning, Dysuria, Discharge, Frequency, Hematuria, Urgency Female Genitourinary: denies: , Irregular period, Vaginal discharge Musculoskeletal: denies: Back pain, Gout, Joint pain Skin: Lumps. denies: Lesions, Rash Hematologic/Lymphatic: denies: Anemia, Blood clots, Easy bleeding, Easy bruising Neurological/Psychological: Headaches. denies: Confusion, Depression, Hallucinations Physical Exam - Vital signs Vitals: Temp Pulse Resp BP Pulse Ox 98.5 F 90 16 110/66 100 05/18/17 18:26 05/18/17 18:26 05/18/17 18:26 05/18/17 18:26 05/18/17 18:26 Interpretation: Normal - General General appearance: Appears well, Alert - HEENT Head: Normocephalic, Atraumatic Eyes: Normal Pupils: PERRL - Respiratory Respiratory status: No respiratory distress Chest status: Nontender Breath sounds: Normal Chest palpation: Normal - Cardiovascular Rhythm: Regular Heart sounds: Normal auscultation Murmur: No - Abdominal Inspection: Normal Distension: No distension Bowel sounds: Normal Tenderness: Nontender Organomegaly: No organomegaly Notes: No obvious deformity noted to the lower abdomen. Normal bowel sounds. No guarding. No rebound. - Back Back: Normal, Nontender - Extremities General upper extremity: Normal inspection, Nontender, Normal color, Normal ROM , Normal temperature General lower extremity: Normal inspection, Nontender, Normal color, Normal ROM , Normal temperature, Normal weight bearing. No: Jeffrey's sign - Neurological Neuro grossly intact: Yes Cognition: Normal Orientation: AAOx4 [place] Coma Scale Eye Opening: Spontaneous [place] Coma Scale Verbal: Oriented Jeanne Coma Scale Motor: Obeys Commands Jeanne Coma Scale Total: 15 Speech: Normal Motor strength normal: LUE, RUE, LLE, RLE Sensory: Normal - Psychological Associated symptoms: Normal affect, Normal mood - Skin Skin Temperature: Warm Skin Moisture: Dry Skin Color: Normal Skin irregularity: other - She has multiple small skin irregularities on the arms and face consistent with her history of neurofibromatosis Course - Re-evaluation Re-evalutation: 05/18/17 22:36 Told patient at this time that I do not feel that her abdomen is distended. Her labs unremarkable. Will culture the urine. Do not feel compelled at this time to treat with antibiotics. With regards to her headache this is a chronic thing. Have offered her migraine treatment but she has refused. She states that she has to walk home and did not want anything that was going to make her sleepy. Did give her a shot of Toradol IM. I advised her to follow-up with her regular doctor as she may require further testing which may include but not limited to MRI or MRA of the brain. Patient knows that we are always here. 05/18/17 22:37 Laboratory 05/18/17 05/18/17 05/18/17 19:04 19:04 19:04 WBC 6.1 RBC 4.10 Hgb 10.6 L Hct 32.2 L MCV 79 L MCH 25.9 L MCHC 33.0 RDW 15.2 H Plt Count 285 Seg Neutrophils % 56.9 Lymphocytes % 27.0 Monocytes % 11.9 Eosinophils % 2.8 Basophils % 1.4 Absolute Neutrophils 3.4 Absolute Lymphocytes 1.6 Absolute Monocytes 0.7 Absolute Eosinophils 0.2 Absolute Basophils 0.1 Sodium 136.1 L Potassium 4.2 Chloride 100 Carbon Dioxide 31 H Anion Gap 5 BUN 8 Creatinine 0.56 Est GFR ( Amer) > 60 Est GFR (Non-Af Amer) > 60 Glucose 80 Calcium 9.1 Total Bilirubin 0.3 Direct Bilirubin 0.1 Neonat Total Bilirubin Not Reportable Neonat Direct Bilirubin Not Reportable Neonat Indirect Bili Not Reportable AST 17 ALT 32 Alkaline Phosphatase 35 L Total Protein 5.7 L Albumin 3.7 Serum HCG, Qual NEGATIVE Urine Color Urine Appearance Urine pH Ur Specific [place] Urine Protein Urine Glucose (UA) Urine Ketones Urine Blood Urine Nitrite Urine Bilirubin Urine Urobilinogen Ur Leukocyte Esterase Urine WBC (Auto) Urine Bacteria (Auto) Squamous Epi Cells Auto Calcium Oxalate Cr Auto Amorphous Sediment Auto Urine Mucus (Auto) Urine Ascorbic Acid 05/18/17 19:50 WBC RBC Hgb Hct MCV MCH MCHC RDW Plt Count Seg Neutrophils % Lymphocytes % Monocytes % Eosinophils % Basophils % Absolute Neutrophils Absolute Lymphocytes Absolute Monocytes Absolute Eosinophils Absolute Basophils Sodium Potassium Chloride Carbon Dioxide Anion Gap BUN Creatinine Est GFR ( Amer) Est GFR (Non-Af Amer) Glucose Calcium Total Bilirubin Direct Bilirubin Neonat Total Bilirubin Neonat Direct Bilirubin Neonat Indirect Bili AST ALT Alkaline Phosphatase Total Protein Albumin Serum HCG, Qual Urine Color YELLOW Urine Appearance CLOUDY Urine pH 9.0 Ur Specific [place] 1.015 Urine Protein NEGATIVE Urine Glucose (UA) NEGATIVE Urine Ketones NEGATIVE Urine Blood NEGATIVE Urine Nitrite NEGATIVE Urine Bilirubin NEGATIVE Urine Urobilinogen NEGATIVE Ur Leukocyte Esterase NEGATIVE Urine WBC (Auto) 4 Urine Bacteria (Auto) 2+ Squamous Epi Cells Auto 2 Calcium Oxalate Cr Auto FEW Amorphous Sediment Auto TRACE Urine Mucus (Auto) OCC Urine Ascorbic Acid NEGATIVE - Vital Signs Vital signs: Temp Pulse Resp BP Pulse Ox 98.6 F 88 16 120/71 98 05/18/17 21:48 05/18/17 21:48 05/18/17 21:48 05/18/17 21:48 05/18/17 21:48 - Laboratory Result Diagrams: 05/18/17 19:04 05/18/17 19:04 Laboratory results interpreted by me: 05/18/17 05/18/17 19:04 19:04 Hgb 10.6 L Hct 32.2 L MCV 79 L MCH 25.9 L RDW 15.2 H Sodium 136.1 L Carbon Dioxide 31 H Alkaline Phosphatase 35 L Total Protein 5.7 L Discharge - Discharge Clinical Impression: Chronic headaches Qualifiers: Headache type: unspecified Intractability: not intractable Qualified Code(s): R51 - Headache Condition: Good Disposition: HOME, SELF-CARE Instructions: Headache ([facility]) Referrals: TIFFANY FIERRO DO [NO LOCAL MD] - Follow up as needed
[2017-05-18 21:51] VITALS: BP 120/71
== END 2017-05-18 21:50 | disposition home or self-care (01) ==
LOC: ER 18:01
DX: R51 Headache (principal); R11.0 Nausea; H53.8 Other visual disturbances; Z88.0 Allergy status to penicillin
CPT/HCPCS: 99283; 96372; 36415; 87086; 84703; 85025; 80053; 81001; J1885; J3490; S0183

== ENCOUNTER 2017-05-22 18:29 | Emergency (ER) | payer SELFPAY ==
[2017-05-22 18:35] VITALS: BP 112/70
== END 2017-05-22 21:03 | disposition left against medical advice (07) ==
LOC: ER 18:29
DX: Z53.21 Procedure and treatment not carried out due to patient leaving prior to being seen by health care provider (principal)

== ENCOUNTER 2017-05-28 10:16 | Emergency (ER) | payer SELFPAY ==
[2017-05-28] MEDS ORDERED: HYDROCODONE/ACETAMINOPHEN 5-325 MG TABLET PO ONE (11:02)
[2017-05-28 11:24] LABS: ABSOLUTE BASOPHILS # (AUTO) 0.1 10^3/uL (0.0-0.2); ABSOLUTE EOSINOPHILS # (AUTO) 0.1 10^3/uL (0.0-0.6); ABSOLUTE LYMPHOCYTES (AUTO) 1.4 10^3/uL (0.5-4.7); ABSOLUTE MONOCYTES (AUTO) 0.7 10^3/uL (0.1-1.4); BASOPHILS % (AUTO) 1.1 % (0-2); EOSINOPHILS % (AUTO) 1.6 % (0-6); HEMATOCRIT 38.1 % (36.0-47.0); HEMOGLOBIN 12.6 g/dL (12.0-15.5); MEAN CORPUSCULAR HEMOGLOBIN 25.6 pg (27.0-33.4); MEAN CORPUSCULAR VOLUME 78 fl (80-97); MONOCYTES % (AUTO) 11.4 % (3-13); PLATELET COUNT 314 10^3/uL (150-450); RED BLOOD COUNT 4.91 10^6/uL (3.72-5.28); RED CELL DISTRIBUTION WIDTH 15.2 % (11.5-14.0); SEGMENTED NEUTROPHILS % (AUTO) 62.9 % (42-78); TOTAL CELLS COUNTED % (AUTO) 100 %; WHITE BLOOD COUNT 6.3 10^3/uL (4.0-10.5)
[2017-05-28 11:28] LABS: APPEARANCE,URINE SLIGHTLY-CLOUDY; BILIRUBIN,URINE NEGATIVE (NEGATIVE); COLOR,URINE YELLOW; GLUCOSE, URINE NEGATIVE (NEGATIVE); KETONES,URINE NEGATIVE (NEGATIVE); LEUKOCYTE ESTERASE,URINE NEGATIVE (NEGATIVE); NITRITE,URINE NEGATIVE (NEGATIVE); PROTEIN,URINE NEGATIVE (NEGATIVE); URINE SPECIFIC GRAVITY 1.021; UROBILINOGEN,URINE NEGATIVE mg/dL (<2.0)
[2017-05-28 11:43] LABS: ALANINE AMINOTRANSFERASE 28 U/L (9-52); ALBUMIN 4.5 g/dL (3.5-5.0); ALKALINE PHOSPHATASE 36 U/L (38-126); ANION GAP 10 (5-19); ASPARTATE AMINO TRANSFERASE 14 U/L (14-36); BILIRUBIN,DIRECT 0.1 mg/dL (0.0-0.4); BILIRUBIN,TOTAL 0.7 mg/dL (0.2-1.3); BLOOD UREA NITROGEN 11 mg/dL (7-20); CALCIUM 9.5 mg/dL (8.4-10.2); CARBON DIOXIDE 25 mmol/L (22-30); CHLORIDE 105 mmol/L (98-107); GLUCOSE 75 mg/dL (75-110); POTASSIUM 4.3 mmol/L (3.6-5.0); SODIUM 140.2 mmol/L (137-145)
--- NOTE | 2017-05-28 12:20 | ER Document Report ---
ED General - General Chief Complaint: Nausea/Vomiting/Diarrhea Stated Complaint: ABDOMINAL PAIN Time Seen by Provider: 05/28/17 11:02 Mode of Arrival: Ambulatory Information source: Patient Notes: Patient reports 4 days of diarrhea. She denies any formed stool. She states she has diarrhea within 10 minutes of eating. Some mild nausea but no abdominal pain. Symptoms are worse when she eats and better when she does not eat. There is no known radiation symptoms. They are mild to moderate and intermittent. She denies any vomiting. No rashes. No fevers. Patient has not been able to see her PCP. TRAVEL OUTSIDE OF THE [place] IN LAST 30 DAYS: No - Related Data Allergies/Adverse Reactions: Penicillins Allergy (Verified 05/28/17 10:17) Generalized Itching Past Medical History - General Information source: Patient - Social History Smoking Status: Never Smoker Frequency of alcohol use: None Drug Abuse: None Family History: Reviewed & Not Pertinent Patient has suicidal ideation: No Patient has homicidal ideation: No Neurological Medical History: Reports: Hx Migraine Renal/ Medical History: Reports: Hx Ovarian Cysts. Denies: Hx Peritoneal Dialysis Psychiatric Medical History: Reports: Hx Anxiety, Hx Bipolar Disorder, Hx Depression Past Surgical History: Reports: Hx Section - x4, Hx Gynecologic Surgery - 06/2012, Hx Tubal Ligation - Immunizations Hx Diphtheria, Pertussis, Tetanus Vaccination: Yes Review of Systems - Review of Systems Constitutional: Malaise. denies: Chills, Fever Respiratory: denies: Cough, Short of breath Gastrointestinal: Diarrhea, Nausea. denies: Abdominal pain, Vomiting -: Yes All other systems reviewed and negative Physical Exam - Vital signs Vitals: Temp Pulse Resp BP Pulse Ox 98.4 F 88 18 110/67 100 05/28/17 10:28 05/28/17 10:28 05/28/17 10:28 05/28/17 10:28 05/28/17 10:28 Interpretation: Normal - General General appearance: Appears well, Alert - HEENT Head: Normocephalic, Atraumatic Eyes: Normal Pupils: PERRL - Respiratory Respiratory status: No respiratory distress Chest status: Nontender Breath sounds: Normal Chest palpation: Normal - Cardiovascular Rhythm: Regular Heart sounds: Normal auscultation Murmur: No - Abdominal Inspection: Normal Distension: No distension Bowel sounds: Normal Tenderness: Nontender Organomegaly: No organomegaly - Back Back: Normal, Nontender - Extremities General upper extremity: Normal inspection, Nontender, Normal color, Normal ROM , Normal temperature General lower extremity: Normal inspection, Nontender, Normal color, Normal ROM , Normal temperature, Normal weight bearing. No: Jeffrey's sign - Neurological Neuro grossly intact: Yes Cognition: Normal Orientation: AAOx4 [place] Coma Scale Eye Opening: Spontaneous [place] Coma Scale Verbal: Oriented [place] Coma Scale Motor: Obeys Commands [place] Coma Scale Total: 15 Speech: Normal Motor strength normal: LUE, RUE, LLE, RLE Sensory: Normal - Psychological Associated symptoms: Normal affect, Normal mood - Skin Skin Temperature: Warm Skin Moisture: Dry Skin Color: Normal Course - Vital Signs Vital signs: Temp Pulse Resp BP Pulse Ox 98.4 F 88 18 110/67 100 05/28/17 10:28 05/28/17 10:28 05/28/17 10:28 05/28/17 10:28 05/28/17 10:28 - Laboratory Result Diagrams: 05/28/17 11:13 05/28/17 11:13 Laboratory results interpreted by me: 05/28/17 05/28/17 11:13 11:13 MCV 78 L MCH 25.6 L RDW 15.2 H Alkaline Phosphatase 36 L Discharge - Discharge Clinical Impression: Diarrhea Qualifiers: Diarrhea type: unspecified type Qualified Code(s): R19.7 - Diarrhea, unspecified Condition: Stable Disposition: HOME, SELF-CARE Instructions: Diarrhea, Nonspecific ([facility]) Prescriptions: Diphenoxylate HCl/Atrop Sulf [Lomotil 2.5 mg Tablet] 1 tab PO Q6HP PRN #10 tablet PRN Reason: Forms: Return to Work Referrals: MEL LOPEZ MD [COMMUNITY BASED STAFF] - Follow up in 1 week
[2017-05-28 12:29] VITALS: BP 111/65
== END 2017-05-28 12:34 | disposition home or self-care (01) ==
LOC: ER 10:16
DX: R19.7 Diarrhea, unspecified (principal); R11.2 Nausea with vomiting, unspecified; R53.81 Other malaise; Z88.0 Allergy status to penicillin; Z98.51 Tubal ligation status
CPT/HCPCS: 36415; 80053; 81001; 81025; 85025; 99284

== ENCOUNTER 2017-10-17 11:48 | Emergency (ER) | payer SELFPAY ==
[2017-10-17 12:00] VITALS: BP 105/64
--- NOTE | 2017-10-17 12:43 | ER Document Report ---
ED Skin Rash/Insect Bite/Abscs - General Chief Complaint: Skin Sore(s) Stated Complaint: SKIN PROBLEMS Time Seen by Provider: 10/17/17 12:29 Notes: Patient is a 26-year-old female complaining of a rash for a week. Areas are itchy and burning. No fever TRAVEL OUTSIDE OF THE [place] IN LAST 30 DAYS: No - HPI Patient complains to provider of: Skin rash/lesion Quality of pain: Burning Skin Temperature: Warm Quality of rash: Painful Exacerbated by: Denies Relieved by: Denies - Related Data Allergies/Adverse Reactions: Penicillins Allergy (Verified 05/28/17 10:17) Generalized Itching Past Medical History - General Information source: Patient - Social History Smoking Status: Current Every Day Smoker Frequency of alcohol use: None Drug Abuse: None Occupation: construction Family History: Reviewed & Not Pertinent - Medical History Medical History: Negative Neurological Medical History: Reports: Hx Migraine Renal/ Medical History: Reports: Hx Ovarian Cysts. Denies: Hx Peritoneal Dialysis Psychiatric Medical History: Reports: Hx Anxiety, Hx Bipolar Disorder, Hx Depression Past Surgical History: Reports: Hx Section - x4, Hx Gynecologic Surgery - 06/2012, Hx Tubal Ligation - Immunizations Hx Diphtheria, Pertussis, Tetanus Vaccination: Yes Review of Systems - Review of Systems Constitutional: No symptoms reported EENT: No symptoms reported Cardiovascular: No symptoms reported Respiratory: No symptoms reported Gastrointestinal: No symptoms reported Genitourinary: No symptoms reported Female Genitourinary: No symptoms reported Musculoskeletal: No symptoms reported Skin: See HPI Hematologic/Lymphatic: No symptoms reported Neurological/Psychological: No symptoms reported Physical Exam - Vital signs Vitals: Temp Pulse Resp BP Pulse Ox 98.5 F 79 18 105/64 100 10/17/17 11:59 10/17/17 11:59 10/17/17 11:59 10/17/17 11:59 10/17/17 11:59 Interpretation: Normal - General General appearance: Appears well, Alert - HEENT Head: Normocephalic, Atraumatic Eyes: Normal Pupils: PERRL - Respiratory Respiratory status: No respiratory distress Chest status: Nontender Breath sounds: Normal Chest palpation: Normal - Cardiovascular Rhythm: Regular Heart sounds: Normal auscultation Murmur: No - Abdominal Inspection: Normal Distension: No distension Bowel sounds: Normal Tenderness: Nontender Organomegaly: No organomegaly - Back Back: Normal, Nontender - Extremities General upper extremity: Normal inspection, Nontender, Normal color, Normal ROM , Normal temperature General lower extremity: Normal inspection, Nontender, Normal color, Normal ROM , Normal temperature, Normal weight bearing. No: Jeffrey's sign - Neurological Neuro grossly intact: Yes Cognition: Normal Orientation: AAOx4 [place] Coma Scale Eye Opening: Spontaneous [place] Coma Scale Verbal: Oriented Jeanne Coma Scale Motor: Obeys Commands [place] Coma Scale Total: 15 Speech: Normal Motor strength normal: LUE, RUE, LLE, RLE Sensory: Normal - Psychological Associated symptoms: Normal affect, Normal mood - Skin Skin Temperature: Warm Skin Moisture: Dry Skin Color: Normal Skin irregularity: Rash - scattered deroofed maculopapular lesions to anterior chest, arms and buttocks. no induration or fluctuance. Course - Vital Signs Vital signs: Temp Pulse Resp BP Pulse Ox 98.5 F 79 18 105/64 100 10/17/17 11:59 10/17/17 11:59 10/17/17 11:59 10/17/17 11:59 10/17/17 11:59 Discharge - Discharge Clinical Impression: Rash Condition: Stable Disposition: HOME, SELF-CARE Instructions: Antibiotic Therapy ([facility]), Antibiotic Ointment Protection ([facility]) Additional Instructions: wash skin with Hibiclens nightly x 1 week oral and topical antibiotic as prescribed follow up with your primary care if rash persists or worsens Prescriptions: Mupirocin [Bactroban 2% Ointment 22 gm] 1 applic TP TID #1 tube Sulfamethoxazole/Trimethoprim [Bactrim Ds Tablet] 1 each PO BID #20 tablet Forms: Return to Work Referrals: TIFFANY FIERRO DO [Primary Care Provider] - Follow up as needed
== END 2017-10-17 12:48 | disposition home or self-care (01) ==
LOC: ER 11:48
DX: R21 Rash and other nonspecific skin eruption (principal); F17.200 Nicotine dependence, unspecified, uncomplicated
CPT/HCPCS: 99282

== ENCOUNTER 2017-10-18 11:35 | Emergency (ER) | payer SELFPAY ==
[2017-10-18 11:54] VITALS: BP 104/77
--- NOTE | 2017-10-18 12:02 | ER Document Report ---
HPI - HPI Patient complains to provider of: sores Onset: Other - few days Pain Level: 4 Context: 26 yo female seen yesterday in ER for leg sores, can't get the medications prescribed- bactroban and septra. left buttocks one is really painful. 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 NO fever. Associated Symptoms: None Exacerbated by: Denies Relieved by: Denies Similar symptoms previously: No Recently seen / treated by doctor: Yes - ROS ROS below otherwise negative: Yes Systems Reviewed and Negative: Yes All other systems reviewed and negative - REPRODUCTIVE Reproductive: DENIES: : Past Medical History - General Information source: Patient - Social History Smoking Status: Current Every Day Smoker Frequency of alcohol use: None Drug Abuse: None Occupation: construction Lives with: Family Family History: Reviewed & Not Pertinent Neurological Medical History: Reports: Hx Migraine Renal/ Medical History: Reports: Hx Ovarian Cysts. Denies: Hx Peritoneal Dialysis Psychiatric Medical History: Reports: Hx Anxiety, Hx Bipolar Disorder, Hx Depression Past Surgical History: Reports: Hx Section - x4, Hx Gynecologic Surgery - 06/2012, Hx Tubal Ligation - Immunizations Hx Diphtheria, Pertussis, Tetanus Vaccination: Yes Vertical Provider Document - CONSTITUTIONAL Agree With Documented VS: Yes Exam Limitations: No Limitations General Appearance: No Apparent Distress - INFECTION CONTROL TRAVEL OUTSIDE OF THE [place] IN LAST 30 DAYS: No - NECK Neck: Supple - MUSCULOSKELETAL/EXTREMETIES Musculoskeletal/Extremeties: MAEW - NEURO Level of Consciousness: Awake - DERM Integumentary: Rash - crusted lesions scattered buttocks, arms, few on turnk- impetigo. Course - Re-evaluation Re-evalutation: 10/18/17 12:43 Patient was seen yesterday and given a prescription for Septra which she states she cannot fill. So the clindamycin she definitely will not be able to fill. I will give her a dispensed pack of Bactroban ointment and tell her where she can get the Septra for cheaper. - Vital Signs Vital signs: Temp Pulse Resp BP Pulse Ox 98.7 F 77 20 104/77 99 10/18/17 11:53 10/18/17 11:53 10/18/17 11:53 10/18/17 11:53 10/18/17 11:53 Discharge - Discharge Clinical Impression: Impetigo Condition: Good Disposition: HOME, SELF-CARE Instructions: Acetaminophen, Bactroban Ointment ([facility]), Clindamycin ([facility]), Ibuprofen (General) ([facility]), Impetigo ([facility]), Warm Packs ([facility]) Additional Instructions: Warm compress Bactroban to the lesions on her buttocks Return to the emergency room if you do not improve daily Forms: Return to Work
[2017-10-18] MEDS ORDERED: CLINDAMYCIN HCL 150 MG CAPSULE PO ONE (12:22)
[2017-10-18] MEDS ORDERED: ONDANSETRON 4 MG TAB.RAPDIS PO ONE (12:22)
[2017-10-18] MEDS ORDERED: MUPIROCIN 2% OINTMENT 22 GM TP ONE (12:43)
== END 2017-10-18 12:48 | disposition home or self-care (01) ==
LOC: ER 11:35
DX: L01.00 Impetigo, unspecified (principal); T36.8X6A Underdosing of other systemic antibiotics, initial encounter; T49.0X6A Underdosing of local antifungal, anti-infective and anti-inflammatory drugs, initial encounter; Z91.120 Patient's intentional underdosing of medication regimen due to financial hardship; Z91.14 Patient's other noncompliance with medication regimen; F17.200 Nicotine dependence, unspecified, uncomplicated
CPT/HCPCS: 99283; S0119; J3490

== ENCOUNTER 2017-10-22 13:05 | Emergency (ER) | payer SELFPAY ==
--- NOTE | 2017-10-22 14:24 | ER Document Report ---
ED Medical Screen (RME) - General Chief Complaint: Abdominal Pain Stated Complaint: ABDOMINAL PAIN Time Seen by Provider: 10/22/17 14:10 Mode of Arrival: Ambulatory Information source: Patient Notes: 26-year-old female history of tubal ligation presents with complaints of abdominal pain. Patient denies any fevers or chills notes is generalized. Patient has pain worsening over the past week I have greeted and performed a rapid initial assessment of this patient. A comprehensive ED assessment and evaluation of the patient, analysis of test results and completion of the medical decision making process will be conducted by additional ED providers. PHYSICAL EXAMINATION: GENERAL: Well-appearing, well-nourished and in no acute distress. HEAD: Atraumatic, normocephalic. EYES: Pupils equal round extraocular movements intact, conjunctiva are normal. ENT: Nares patent NECK: Normal range of motion LUNGS: No respiratory distress Musculoskeletal: Normal range of motion NEUROLOGICAL: Normal speech, normal gait. PSYCH: Normal mood, normal affect. SKIN: Warm, Dry, normal turgor, no rashes or lesions noted. TRAVEL OUTSIDE OF THE [place] IN LAST 30 DAYS: No - Related Data Allergies/Adverse Reactions: Penicillins Allergy (Verified 05/28/17 10:17) Generalized Itching Past Medical History - Social History Chew tobacco use (# tins/day): No Frequency of alcohol use: None Drug Abuse: None Neurological Medical History: Reports: Hx Migraine Renal/ Medical History: Reports: Hx Ovarian Cysts. Denies: Hx Peritoneal Dialysis Psychiatric Medical History: Reports: Hx Anxiety, Hx Bipolar Disorder, Hx Depression Past Surgical History: Reports: Hx Section - x4, Hx Gynecologic Surgery - 06/2012, Hx Tubal Ligation - Immunizations Hx Diphtheria, Pertussis, Tetanus Vaccination: Yes Physical Exam - Vital signs Vitals: Temp Pulse Resp BP Pulse Ox 98.5 F 94 20 102/83 100 10/22/17 13:19 10/22/17 13:19 10/22/17 13:19 10/22/17 13:19 10/22/17 13:19 Course - Vital Signs Vital signs: Temp Pulse Resp BP Pulse Ox 98.5 F 94 20 102/83 100 10/22/17 13:19 10/22/17 13:19 10/22/17 13:19 10/22/17 13:19 10/22/17 13:19
[2017-10-22 14:56] LABS: ABSOLUTE BASOPHILS # (AUTO) 0.1 10^3/uL (0.0-0.2); ABSOLUTE EOSINOPHILS # (AUTO) 0.1 10^3/uL (0.0-0.6); ABSOLUTE LYMPHOCYTES (AUTO) 1.5 10^3/uL (0.5-4.7); ABSOLUTE MONOCYTES (AUTO) 0.6 10^3/uL (0.1-1.4); ABSOLUTE NEUT (AUTO) 4.5 10^3/uL (1.7-8.2); BASOPHILS % (AUTO) 1.5 % (0-2); EOSINOPHILS % (AUTO) 1.8 % (0-6); HEMOGLOBIN 12.2 g/dL (12.0-15.5); MEAN CORPUSCULAR VOLUME 76 fl (80-97); MONOCYTES % (AUTO) 8.3 % (3-13); PLATELET COUNT 331 10^3/uL (150-450); RED BLOOD COUNT 4.88 10^6/uL (3.72-5.28); RED CELL DISTRIBUTION WIDTH 14.8 % (11.5-14.0); SEGMENTED NEUTROPHILS % (AUTO) 66.4 % (42-78); TOTAL CELLS COUNTED % (AUTO) 100 %; WHITE BLOOD COUNT 6.7 10^3/uL (4.0-10.5)
--- NOTE | 2017-10-22 14:56 | ER Document Report ---
ED GI/ - General Chief Complaint: Abdominal Pain Stated Complaint: ABDOMINAL PAIN Time Seen by Provider: 10/22/17 14:10 Mode of Arrival: Ambulatory Information source: Patient TRAVEL OUTSIDE OF THE [place] IN LAST 30 DAYS: No - HPI Patient complains to provider of: Abdominal pain Onset: Other - 1-2 WEEKS Timing/Duration: Gradual, Intermittent Quality of pain: Dull Severity at maximum: Moderate Severity in ED: Almost gone Context: denies: Bad food, Lifting, Out of the country travel, , Recent trauma Location: Epigastric - AND TOYIN-UMBILICAL Vaginal bleeding (Compared to normal period): None Menstrual period history: denies: - Related Data Allergies/Adverse Reactions: Penicillins Allergy (Verified 05/28/17 10:17) Generalized Itching Past Medical History - General Information source: Patient - Social History Smoking Status: Never Smoker Chew tobacco use (# tins/day): No Frequency of alcohol use: None Drug Abuse: None Lives with: Spouse/Significant other Family History: Reviewed & Not Pertinent Patient has suicidal ideation: No Patient has homicidal ideation: No - Past Medical History Cardiac Medical History: Reports: None Pulmonary Medical History: Reports: None EENT Medical History: Reports: None Neurological Medical History: Reports: Hx Migraine, Other - NEUROFIBROMATOSIS Endocrine Medical History: Reports: None Renal/ Medical History: Reports: Hx Ovarian Cysts. Denies: Hx Peritoneal Dialysis Malignancy Medical History: Reports: None GI Medical History: Reports: None Musculoskeltal Medical History: Reports None Psychiatric Medical History: Reports: Hx Anxiety, Hx Bipolar Disorder, Hx Depression Past Surgical History: Reports: Hx Section - x4, Hx Gynecologic Surgery - 06/2012, Hx Tubal Ligation. Denies: Hx Appendectomy, Hx Cholecystectomy - Immunizations Hx Diphtheria, Pertussis, Tetanus Vaccination: Yes Review of Systems - Review of Systems Constitutional: Other - FATIGUE. denies: Chills, Fever, Weight gain, Weight loss EENT: No symptoms reported Cardiovascular: Chest pain - BELOW LEFT BREAST, LOCALIZED, INCREASED W/ DEEP BREATH. Respiratory: No symptoms reported Gastrointestinal: See HPI Genitourinary: No symptoms reported Female Genitourinary: No symptoms reported Musculoskeletal: No symptoms reported Skin: No symptoms reported Neurological/Psychological: Headaches Physical Exam - Vital signs Vitals: Temp Pulse Resp BP Pulse Ox 98.5 F 94 20 102/83 100 10/22/17 13:19 10/22/17 13:19 10/22/17 13:19 10/22/17 13:19 10/22/17 13:19 Interpretation: Normal. No: Tachycardic, Tachypneic, Febrile - General General appearance: Appears well, Alert In distress: None - HEENT Head: Normocephalic Eyes: Normal Conjunctiva: Normal Ears: Normal Nasal: Normal Mouth/Lips: Normal Mucous membranes: Normal Pharynx: Normal Neck: Normal - Respiratory Respiratory status: No respiratory distress Breath sounds: Normal - Abdominal Inspection: Normal Distension: No distension Bowel sounds: Normal Tenderness: Nontender - Back Back: Normal - Extremities General upper extremity: Normal inspection General lower extremity: Normal inspection - Neurological Neuro grossly intact: Yes Cognition: Normal Orientation: AAOx4 - Psychological Associated symptoms: Normal affect, Normal mood - Skin Skin Temperature: Warm Skin Moisture: Dry Skin Color: Normal Skin Turgor: Elastic Skin irregularity: other - NUMEROUS NEUROFIBROMATA Course - Vital Signs Vital signs: Temp Pulse Resp BP Pulse Ox 98.5 F 94 20 102/83 100 10/22/17 13:19 10/22/17 13:19 10/22/17 13:19 10/22/17 13:19 10/22/17 13:19 - Laboratory Result Diagrams: 10/22/17 14:35 10/22/17 14:35 Laboratory results interpreted by me: 10/22/17 10/22/17 14:35 14:35 MCV 76 L MCH 25.0 L RDW 14.8 H Urine Urobilinogen 2.0 H Discharge - Discharge Clinical Impression: Abdominal pain Qualifiers: Abdominal location: periumbilical Qualified Code(s): R10.33 - Periumbilical pain Headache Qualifiers: Headache type: unspecified Headache chronicity pattern: acute headache Intractability: not intractable Qualified Code(s): R51 - Headache Condition: Stable Disposition: HOME, SELF-CARE Instructions: Abdominal Pain ([facility]), Headache ([facility]) Additional Instructions: REST, DRINK PLENTY OF FLUIDS. INCREASE YOUR FLUID INTAKE WHEN WORKING OR WHEN EXPOSED TO HOT WEATHER. YOU MAY TAKE TYLENOL OR IBUPROFEN FOR PAIN IF NEEDED. FOLLOW UP WITH YOUR PRIMARY CARE PROVIDER OR RETURN TO E.R. IF PROBLEMS.
[2017-10-22 15:16] LABS: ALANINE AMINOTRANSFERASE 17 U/L (9-52); ALBUMIN 4.6 g/dL (3.5-5.0); ALKALINE PHOSPHATASE 50 U/L (38-126); ANION GAP 14 (5-19); ASPARTATE AMINO TRANSFERASE 15 U/L (14-36); BILIRUBIN,DIRECT 0.2 mg/dL (0.0-0.4); BILIRUBIN,TOTAL 0.2 mg/dL (0.2-1.3); BLOOD UREA NITROGEN 13 mg/dL (7-20); CALCIUM 9.6 mg/dL (8.4-10.2); CARBON DIOXIDE 26 mmol/L (22-30); CHLORIDE 103 mmol/L (98-107); GLUCOSE 90 mg/dL (75-110); LIPASE 61.1 U/L (23-300); POTASSIUM 4.3 mmol/L (3.6-5.0); SODIUM 142.6 mmol/L (137-145); TOTAL PROTEIN 7.3 g/dL (6.3-8.2)
[2017-10-22 15:35] LABS: AMORPHOUS SEDIMENT,URINE TRACE /HPF; APPEARANCE,URINE TURBID; BILIRUBIN,URINE NEGATIVE (NEGATIVE); CALCIUM OXALATE CRYSTALS,URINE MODERATE /HPF; COLOR,URINE YELLOW; GLUCOSE, URINE NEGATIVE (NEGATIVE); KETONES,URINE NEGATIVE (NEGATIVE); LEUKOCYTE ESTERASE,URINE NEGATIVE (NEGATIVE); NITRITE,URINE NEGATIVE (NEGATIVE); PROTEIN,URINE NEGATIVE (NEGATIVE); URINE SPECIFIC GRAVITY 1.025
[2017-10-22 15:58] VITALS: BP 108/68
[2017-10-22 16:06] LABS: URINE AMPHETAMINES SCREEN NEGATIVE; URINE BARBITURATES SCREEN NEGATIVE; URINE BENZODIAZEPINES SCREEN NEGATIVE; URINE MARIJUANA (THC) SCREEN NEGATIVE; URINE METHADONE SCREEN NEGATIVE; URINE PHENCYCLIDINE SCREEN NEGATIVE
[2017-10-22 16:12] LABS: URINE COCAINE SCREEN NEGATIVE
== END 2017-10-22 16:00 | disposition home or self-care (01) ==
LOC: ER 13:05
DX: R10.33 Periumbilical pain (principal); R51 Headache; R10.13 Epigastric pain; R53.83 Other fatigue; R07.9 Chest pain, unspecified; Q85.00 Neurofibromatosis, unspecified; Z88.0 Allergy status to penicillin; Z98.51 Tubal ligation status
CPT/HCPCS: 36415; 80053; 80307; 81001; 81025; 83690; 84443; 85025; 99284